=== PATIENT | female | born 1940 | race Asian ===

== ENCOUNTER → 2018-03-13 11:51 | Outpatient (CLI) | payer OTHER, MEDICAID, SELFPAY | PROVIDERS: PCP Family Medicine; Visit Provider Family Medicine | DX: R32 Unspecified urinary incontinence (principal) | CPT/HCPCS: 87086 ==

== ENCOUNTER → 2018-06-21 10:40 | Outpatient (CLI) | payer MEDICARE, MEDICAID, SELFPAY ==
--- NOTE | 2018-06-21 | DI.US.S_ITS ---
PROCEDURE: US THYROID INDICATIONS: LEFT THYROID ENLARGEMENT TECHNIQUE: Real-time scanning was performed of the thyroid gland, with image documentation. COMPARISON: None. FINDINGS: Right: Thyroid lobe measures 4.0 x 1.3 x 1.3 cm, and is homogeneous in echotexture. Left: Thyroid lobe measures 4.3 x 1.5 x 1.6 cm, and is homogenous in echotexture. Isthmus: 2.3 mm thick. Nodule number: 1 Location: Left inferior Size: 1.5 x 1.0 x 1.1 cm. Composition: Solid Echogenicity: Hypoechoic Shape: wider than tall. Margins: Smooth Echogenic foci: None Total points: 4 ACR TI-RADS category: Moderately suspicious Nodule number: 2 Location: Left inferior Size: 0.7 x 0.7 x 0.7 cm. Composition: Solid Echogenicity: Hypoechoic Shape: wider than tall. Margins: Smooth Echogenic foci: None Total points: 4 ACR TI-RADS category: Moderately suspicious Nodule number: 3 Location: Right superior Size: 0.5 x 0.3 x 0.5 cm. Composition: Solid Echogenicity: Hypoechoic Shape: wider than tall. Margins: Smooth Echogenic foci: None Total points: 4 ACR TI-RADS category: Moderately suspicious Nodule number: 4 Location: Right inferior Size: 0.9 x 0.6 x 0.6 cm. Composition: Solid Echogenicity: Hypoechoic Shape: wider than tall. Margins: Smooth Echogenic foci: None Total points: 4 ACR TI-RADS category: Moderately suspicious IMPRESSION: Bilateral thyroid nodules as above. Recommend continued followup as detailed below. ACR TI-RADS definitions and recommendations: TI-RADS 1 (benign): 0 points. FNA not needed. TI-RADS 2 (not suspicious): 2 points. FNA not needed. TI-RADS 3 (mildly suspicious): 3 points. * FNA if 2.5 cm or larger, follow up if 1.5 cm or larger (at 1, 3, and 5 years). TI-RADS 4 (moderately suspicious): 4-6 points. * FNA if 1.5 cm or larger, follow up if 1 cm or larger (at 1, 2, 3, and 5 years). TI-RADS 5 (highly suspicious): 7 points or more. * FNA if 1 cm or larger, follow up if 0.5 cm or larger (every year for 5 years). Dictated by: Cl DUFF Interpreted: Mouna Maldonado MD on 06/21/2018 at 12:29 Approved by: Mouna Maldonado M.D. on 06/21/2018 at 14:29
== END ==
PROVIDERS: PCP Family Medicine; Visit Provider Nurse Practitioner Family
DX: E04.2 Nontoxic multinodular goiter (principal)
CPT/HCPCS: 76536

== ENCOUNTER → 2018-12-18 07:48 | Outpatient (CLI) | payer MEDICARE, MEDICAID, SELFPAY ==
[2018-12-18 09:29] LABS: Hemoglobin A1C% w Est Avg Glu 5.9 % (4.0-6.0)
[2018-12-18 09:52] LABS: Alanine Aminotransferase 27 IU/L (9-52); Albumin 3.9 g/dL (3.5-5.0); Albumin Globulin Ratio 1.3 (1.0-2.8); Alkaline Phosphatase 50 U/L (38-126); Aspartate Aminotransferase 20 IU/L (14-36); Bilirubin Total 0.6 mg/dL (0.2-1.3); Blood Urea Nitrogen 21 mg/dL (7-17); Calcium 9.5 mg/dL (8.4-10.2); Carbon Dioxide 30 mmol/L (22-32); Chloride 101 mmol/L (98-107); Cholesterol 133 mg/dL (140-199); Creatinine Urine Random 83.5 mg/dL; Estimated Glomerular Filt Rate > 60.0 mL/min (>60); Glucose 106 mg/dL (80-110); HDL Cholesterol 43 mg/dL (40-60); HEMOLYSIS < 15 (0-50); LDL Cholesterol Calculated 65 mg/dL (<100); Potassium 3.8 mmol/L (3.4-5.1); Sodium 139 mmol/L (137-145); Total Protein 6.9 g/dL (6.3-8.2); Triglycerides 123 mg/dL (35-150)
[2018-12-18 10:00] LABS: Microalbumi Creatinin Ratio Ur 7.1 ug/mg CR (<30); Microalbumin Urine Random < 0.6 mg/dL (0-1.6)
== END ==
PROVIDERS: PCP Family Medicine; Visit Provider Family Medicine
DX: E11.8 Type 2 diabetes mellitus with unspecified complications (principal); I10 Essential (primary) hypertension
CPT/HCPCS: 36415; 80053; 80061; 82043; 82570; 83036

== ENCOUNTER → 2019-01-03 10:46 | Outpatient (CLI) | payer MEDICARE, MEDICAID, SELFPAY ==
--- NOTE | 2019-01-03 10:48 | DI.RAD.S_ITS ---
PROCEDURE: FL BARIUM SWALLOW INDICATIONS: difficulty swallowing COMPARISON: None. FINDINGS: Function: There is markedly decreased and delayed esophageal peristalsis. No elicited gastroesophageal reflux. Occasional retrograde contrast material transit is noted within the esophagus. Morphology: Air-contrast images demonstrate normal mucosal morphology. Single contrast views show no esophageal strictures, extrinsic mass effects, or diverticula. Limited images of the stomach demonstrate normal appearance. IMPRESSION: Severe esophageal dysmotility. Dictated by: Lj Whitten M.D. on 01/03/2019 at 11:48 Approved by: Lj Whitten M.D. on 01/03/2019 at 11:49
== END ==
PROVIDERS: PCP Family Medicine; Visit Provider Family Medicine
DX: R13.10 Dysphagia, unspecified (principal); K22.4 Dyskinesia of esophagus
CPT/HCPCS: 74220

== ENCOUNTER 2019-01-11 08:53 | Outpatient (RCR) | payer MEDICARE, MEDICAID, SELFPAY ==
--- NOTE | 2019-01-12 15:37 | ST.OPIE ---
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 Roger Reason for Referral Dsyphagi Setting Assessment Location Outpatient Care Visit Type Note Type Initial Evaluation Next Note Type Next Note Type Treatment Note Patient Information Identification Type Name History Ishan complains of difficulty swallowing solid foods. The symptoms began last year during a trip to [facility] when she was eating a hard fruit. Since that time, she has noticed increasing difficulty swallowing foods such as vegetables. She compensates by drinking water which usually alleviates the symptoms. She had a Barium Swallow completed this month which revealed severe esophageal dysmotility. No signs of reflux. Subjective Observations Ishan arrived on time accompanied by her daughter who translated during the evaluation. Ishan speaks Kayla. Evaluation Liquids Trialed Thin Solids Trialed Puree Mechanical Soft Regular Administration Type Self-Feeding Oral Impairment WFL Oral Phase Comments Oral mucosa was moist without excessive saliva or drooling. No sores, lesions or food/ residue observed in the mouth. She wears dentures which are in good condition, but loosely fitting on the bottom. Her daughter reports she is scheduled for a dental appointment for new dentures. No presence of drooling. Labial closure, lingual range of motion and facial symmetry were within functional limits. Patient consumed appropriately sized self- administered bites and sips at a slow rate. Her posture was upright and she demonstrated efficient mastication without residue following trials. No signs of oral dysphagia. Pharyngeal Phase Comments The Renetta Swallow Protocol was administered. The patient passed by drinking 3 ounces of water without stopping and without coughing/choking during or immediately after completion. She had a delayed throat clear following trials. We discussed potential for pharyngeal residue and education was provided to the patient and her daughter regarding general swallowing anatomy and swallowing problems. Handouts were provided which discussed the phases of swallowing and recommendations including small bites/sips, multiple swallows,extra liquids and remaining upright 20 minutes following meals to assist with clearance. Findings Impressions No significant signs of pharyngeal dysphagia however, this cannot be ruled out without instrumental assessment. Recommend patient follow up with [facility] concerning severe esophageal dysmotility which was identified on Barium Swallow this month. If patient's symptoms continue or worsen following recommendations from GI doctor, recommend Modified Barium Swallow Study to assess for pharyngeal impairment which could be contributing to symptoms. Diet Recommendations Liquids Order Thin Diet Order Regular Medication Recommendations As Tolerated Additional Dietary Needs Reminders to Use Strategies Aspiration Precautions Recommended Precautions Upright at 90 Degrees Alternate Liquids/Solids Small Bites/Sips Treatment Plan Placement Recommendations after Home Discharge Appropriate for Therapy Yes Therapy Recommendations Follow-up after patient has seen [facility] regarding esophageal dysmotility. Dysphagia Goals To be determined
--- NOTE | 2019-04-23 16:07 | ST.IPDYTX ---
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 Recommendations were made for a Modified Barium Swallow Study with follow-up after to discuss treatment options/ plans. She has not been seen since the initial evaluation and has not returned calls regarding follow-up/discharge. She is being discharged after having not been seen in over 90 days. Treatment Plan Appropriate for Continued Therapy No Therapy Recommendations Discharge from therapy at this time.
== END 2019-04-24 11:04 | disposition home or self-care (01) ==
LOC: SP 08:53
PROVIDERS: PCP Family Medicine; Visit Provider Family Medicine
DX: R13.10 Dysphagia, unspecified (principal)
CPT/HCPCS: 92610

== ENCOUNTER → 2019-05-21 08:40 | Outpatient (CLI) | payer MEDICARE, MEDICAID, SELFPAY ==
[2019-05-21 10:53] LABS: Add Manual Diff / Slide Review NO; Basophils Absolute Auto 100 /uL (0-100); Basophils Percent Auto 1.5 % (0-2); Eosinophils Absolute Auto 100 /uL (0-450); Eosinophils Percent Auto 3.1 % (2-4); Hematocrit 43.8 % (36-46); Hemoglobin 15.3 g/dL (12.0-16.0); Lymphocytes Absolute Auto 1600 /uL (1100-4500); Lymphocytes Percent Auto 44.4 % (25-40); Mean Corpuscular Hemoglobin 30.3 PG (26-34); Mean Corpuscular Volume 86.6 fL (80-100); Monocytes Absolute Auto 300 /uL (0-900); Neutrophils Absolute Auto 1600 /uL (1500-7000); Platelet Count 161 X10^3/uL (150-400); Red Blood Cell Count 5.06 X10^6/uL (4.0-5.2); White Blood Cell Count 3.7 X10^3/uL (4.5-11.0)
[2019-05-21 10:59] LABS: Hemoglobin A1C% w Est Avg Glu 5.5 % (4.0-6.0)
== END ==
PROVIDERS: Visit Provider Family Medicine
DX: E11.8 Type 2 diabetes mellitus with unspecified complications (principal)
CPT/HCPCS: 36415; 83036; 84443; 85025

== ENCOUNTER → 2019-05-31 13:43 | Outpatient (CLI) | payer MEDICARE, MEDICAID, SELFPAY | PROVIDERS: PCP Family Medicine; Visit Provider Family Medicine | DX: M81.0 Age-related osteoporosis without current pathological fracture (principal); Z78.0 Asymptomatic menopausal state; E11.9 Type 2 diabetes mellitus without complications | CPT/HCPCS: 77080 ==

== ENCOUNTER → 2020-11-29 08:36 | Outpatient (CLI) | payer MEDICARE, MEDICAID, SELFPAY ==
[2020-11-29 09:27] LABS: Add Manual Diff / Slide Review NO; Basophils Absolute Auto 100 /uL (0-100); Basophils Percent Auto 1.3 % (0-2); Eosinophils Absolute Auto 100 /uL (0-450); Hematocrit 43.7 % (36-46); Hemoglobin 14.8 g/dL (12.0-16.0); Lymphocytes Absolute Auto 1700 /uL (1100-4500); Lymphocytes Percent Auto 40.7 % (25-40); Mean Corpuscular HGB Conc 33.9 % (30-36); Mean Corpuscular Hemoglobin 29.5 PG (26-34); Monocytes Absolute Auto 400 /uL (0-900); Monocytes Percent Auto 9.3 % (3-14); Neutrophils Absolute Auto 1900 /uL (1500-7000); Neutrophils Percent Auto 45.7 % (50-75); Platelet Count 139 X10^3/uL (150-400); Red Blood Cell Count 5.03 X10^6/uL (4.0-5.2); Red Cell Distribution Width 13.3 % (11.6-14.8); White Blood Cell Count 4.2 X10^3/uL (4.5-11.0)
[2020-11-29 09:34] LABS: Hemoglobin A1C% w Est Avg Glu 5.9 % (4.0-6.0)
[2020-11-29 09:38] LABS: Alanine Aminotransferase 12 IU/L (<35); Albumin Globulin Ratio 1.4 (1.0-2.8); Alkaline Phosphatase 50 U/L (38-126); Aspartate Aminotransferase 25 IU/L (14-36); Bilirubin Total 0.6 mg/dL (0.2-1.3); Blood Urea Nitrogen 14 mg/dL (7-17); Calcium 9.2 mg/dL (8.4-10.2); Carbon Dioxide 31 mmol/L (22-32); Chloride 104 mmol/L (98-107); Cholesterol 154 mg/dL (140-199); Estimated Glomerular Filt Rate > 60.0 mL/min (>60); Globulin 2.9 g/dL (1.7-4.1); Glucose 101 mg/dL (80-110); HDL Cholesterol 41 mg/dL (40-60); HEMOLYSIS < 15 (0-50); LDL Cholesterol Calculated 84 mg/dL (<100); Sodium 140 mmol/L (137-145); Total Protein 6.9 g/dL (6.3-8.2); Triglycerides 143 mg/dL (35-150)
[2020-11-29 10:10] LABS: Creatinine Urine Random 67.5 mg/dL
[2020-11-29 10:12] LABS: Microalbumin Urine Random < 0.6 mg/dL (0-1.6)
[2020-11-29 10:27] LABS: Vitamin B12 214 pg/mL (239-931)
[2020-11-29 10:39] LABS: TSH w/ Reflex to FT4 1.42 uIU/mL (0.47-4.68)
== END ==
PROVIDERS: PCP Internal Medicine; Referring Provider Internal Medicine; Visit Provider Internal Medicine
DX: I10 Essential (primary) hypertension (principal); E11.21 Type 2 diabetes mellitus with diabetic nephropathy; E78.5 Hyperlipidemia, unspecified; R53.82 Chronic fatigue, unspecified
CPT/HCPCS: 36415; 80053; 80061; 82043; 82570; 82607; 83036; 84443; 85025

== ENCOUNTER → 2021-02-20 14:58 | Outpatient (CLI) | payer MEDICARE, MEDICAID, SELFPAY ==
--- NOTE | 2021-02-20 | DI.RAD.S_ITS ---
PROCEDURE: XR HIP W PEL IF DONE RT 2V INDICATIONS: Right Hip Pain TECHNIQUE: AP pelvis with lateral view(s) of the right hip(s). COMPARISON: None. FINDINGS: Bones: No fractures or dislocations. Pelvic ring appears intact. No suspicious bony lesions. Moderate narrowing of the axial portion of the hip joints bilaterally with periarticular osteophyte formation. Mid lumbar spine fixation hardware incompletely visualized. Soft tissues: The visualized bowel gas pattern is normal. No suspicious soft tissue calcifications. IMPRESSION: Moderate symmetric hip joint degeneration. Dictated by: Cl Gaona RRA Interpreted: Ravin Leung MD on 02/20/2021 at 15:14 Transcribed by: CHUN on 02/20/2021 at 15:15 Approved by: Ravin Leung M.D. on 02/20/2021 at 15:31
== END ==
PROVIDERS: PCP Internal Medicine; Referring Provider Internal Medicine; Visit Provider Internal Medicine
DX: M25.551 Pain in right hip (principal); M16.0 Bilateral primary osteoarthritis of hip
CPT/HCPCS: 73502

== ENCOUNTER 2021-05-07 19:10 | Emergency (ER) | payer MEDICARE, MEDICAID, SELFPAY ==
[2021-05-07 19:22] VITALS: BP 187/84; PULSE 87; RESP 15; TEMP 36.7; O2SAT 96; BMI 23.9
[2021-05-07 20:31] LABS: Bacteria Urine Few (2-10); Calcium Oxalate Crystals Urine Few; Culture Indicated Urine Specimen Cultured; RBC Urine >100/HPF (0-5/HPF); Squamous Epithelial Cell Urine 0-1 /HPF (0-5/HPF); WBC Urine 30-100/HPF (0-5/HPF)
--- NOTE | 2021-05-07 22:05 | ED.FEMALEGU ---
HPI - Female Genitourinary General Chief complaint: Urogenital-Female Stated complaint: Burning and Bleeding, Frequent Urination Time Seen by Provider: 05/07/21 21:42 Source: patient Mode of arrival: Ambulatory Limitations: no limitations History of Present Illness HPI Narrative: 80-year-old female nonsmoker with history of hypertension and diabetes presents with her daughter and a chief complaint of a day or 2 of urinary frequency, urgency and mild hematuria. She denies any systemic findings such as fever, chills nor nausea or vomiting. She does have some right-sided back pain but feels like this is most consistent with her ongoing chronic lumbar pain with occasional radicular symptoms. She denies any lower extremity numbness, tingling or weakness. She denies any loss of control of bowel or bladder. Related Data Previous Rx's Medication Instructions Recorded blood sugar diagnostic (Blood #100 each 03/15/19 Glucose Test) blood-glucose meter (Blood Glucose #1 each 03/15/19 Monitoring) diclofenac sodium 1 % topical gel 2 gram TOP QID #100 gram 05/25/19 hydrochlorothiazide 12.5 mg capsule 12.5 mg PO QDAY #90 cap 05/25/19 metformin 500 mg tablet,extended 500 mg PO QDAY #180 tab 05/25/19 release 24 hr (Glucophage XR) mometasone 0.1 % topical solution 1 applictn TOP DAILY PRN #60 ml 05/25/19 simvastatin 10 mg tablet 10 mg PO HS #90 tab 05/25/19 solifenacin 5 mg tablet (Vesicare) 5 mg PO QDAY #90 tab 05/25/19 aspirin 81 mg tablet,delayed 81 mg PO QDAY #90 tab 06/22/19 release lisinopril 20 mg tablet See Rx Instructions .ROUTE 06/26/20 .COMPLEX #30 tab alendronate 70 mg tablet See Rx Instructions .ROUTE 09/11/20 .COMPLEX #12 tab metoprolol succinate 50 mg 50 mg PO DAILY #30 tab 10/01/20 tablet,extended release 24 hr cefuroxime axetil 500 mg tablet 500 mg PO BID #14 tab 05/07/21 Allergies Allergy/AdvReac Type Severity Reaction Status Date / Time No Known Drug Allergies Allergy Unverified 05/25/19 14:48 Review of Systems Review of Systems Narrative: GENERAL: Denies chills, fatigue, malaise, fever, sweats. HEENT: Denies sinus pain, ear pain, sore throat, difficulty swallowing, dizziness. RESPIRATORY: Denies dyspnea, cough, wheezing, hemoptysis, sputum. CARDIOVASCULAR: Denies chest pain, palpitations, orthopnea, edema, GASTROINTESTINAL: Denies nausea, vomiting, abdominal pain, diarrhea, constipation, melena. : See HPI MUSCULOSKELETAL: denies weakness, joint pain, or bony pain SKIN: Denies rash, skin lesions, or other NEUROLOGIC: Denies weakness, headache, numbness, change in speech, confusion, seizures, incoordination. PSYCHIATRIC: No concerning psychosocial issues. 12 point review of systems is negative except for those stated above Patient History Medical History Ankle pain Diabetes insipidus Foot pain Hypertension Surgical History No history of previous surgery (06/27/17) alcohol intake frequency: holidays/special occasions only Substance Use Type: does not use Exam Narrative Exam Narrative: GEN: AOx3 and in mild distress EYES: Pupils are equal, round, and reactive to light and accommodation. Extraoccular muscles are intact bilaterally. There is no subconjunctival hemorrhage or exudate. CHEST: Lungs are clear to auscultation bilaterally and free of wheezes, rales, or rhonchi. Heart rate is regular rhythm, there are no murmurs, clicks, rubs, or gallops. There is no chest wall tenderness. ABD: Abdomen is soft and nontender. There is no guarding or rebound. Bowel sounds are normal in all 4 quadrants. There is no mass or organomegaly. EXT: Full painless ROM of all extremities with no loss of sensation or strength. BACK: no CVA tenderness SKIN: Warm, pink, and dry. No erythema or rash Initial Vital Signs Initial Vital Signs: Vital Signs Temperature 98.1 F 05/07/21 19: Pulse Rate 87 05/07/21 19:22 Respiratory Rate 15 05/07/21 19:22 Blood Pressure 187/84 H 05/07/21 19:22 Pulse Oximetry 96 05/07/21 19:22 Course Orders Ordered: Discontinued Medications Cefuroxime Axetil (Cefuroxime 250 Mg Tablet) 500 mg PO NOW ONE Stop: 05/07/21 22:11 Last Admin: 05/07/21 22:16 Dose: 500 mg Documented by: MAL Vital Signs Vital signs: Vital Signs - 8 hr 05/07/21 19:22 Temperature 98.1 F Pulse Rate 87 Respiratory Rate 15 Blood Pressure 187/84 H Pulse Oximetry 96 MDM - Female Genitourinary Lab Data Labs: Lab Results 05/07/21 Range/Units 20:00 Urine RBC >100/hpf H (0-5/HPF) Urine WBC 30-100/hpf H (0-5/HPF) Ur Squamous Epith Cells 0-1 /hpf (0-5/HPF) Calcium Oxalate Crystal Few H Urine Bacteria Few (2-10) H (None) Ur Culture Indicated? Specimen cultured Urine Dip Bedside Urine Glucose Negative Bedside Urine Bilirubin - Negative Bedside Urine Ketone - Negative Urine Specific Cypress 1.030 Bedside Urine Occult Blood +++ Bedside Urine pH 6.0 Bedside Urine Protein +++ 300 Bedside Urine Urobilinogen - Negative Bedside Urine Nitrite - Negative Bedside Urine Leukocytes +/- 15 Esterase Discharge Plan Departure Patient Disposition: Home Clinical Impression: Acute UTI Instructions: DI for Urinary Tract Infection (UTI) Activity Restrictions/Additional Instructions: *You have been diagnosed with [urinary tract infection with hematuria, no evidence of sepsis or pyelonephritis *What to do: *Please continue to take your regular medications as directed. [ x] New medication prescriptions sent to your pharmacy: [[facility]] [ ] New medication written as a paper prescription [ ] No new medications given *Please follow up with your primary care provider in 2-3 days, call for an appointment. Let them know you were seen in the Emergency Department and that we ask that you be seen in follow up. We will electronically transmit a record of today's note if your PCP is in our system *If you do not have a primary care provider please contact the [facility] Resource line at [phone]. They will ask some questions about your medical history and help get you set up with a doctor in the community. *Return to Emergency Department if you should have any new, worsening or concerning symptoms, such as [fever greater than 101 F, shaking chills, worsening pain, persistent vomiting or other bothersome symptoms] Prescriptions: New cefuroxime axetil 500 mg tablet 500 mg PO BID Qty: 14 RF: 0 No Action hydrochlorothiazide 12.5 mg capsule 12.5 mg PO QDAY Qty: 90 RF: 3 metformin [Glucophage XR] 500 mg tablet extended release 24 hr 500 mg PO QDAY Qty: 180 RF: 1 simvastatin 10 mg tablet 10 mg PO HS Qty: 90 RF: 3 solifenacin [Vesicare] 5 mg tablet 5 mg PO QDAY Qty: 90 RF: 3 mometasone 0.1 % solution 1 applictn TOP DAILY PRN (Reason: itching) Qty: 60 RF: 0 diclofenac sodium 1 % gel 2 gram TOP QID Qty: 100 RF: 3 (DME) blood-glucose meter [Blood Glucose Monitoring] kit See Dose Instructions .ROUTE .MEDSUPPLY Qty: 1 RF: 0 (DME) Blood Glucose Test strip See Dose Instructions .ROUTE .MEDSUPPLY Qty: 100 RF: 3 aspirin 81 mg tablet,delayed release (DR/EC) 81 mg PO QDAY Qty: 90 RF: 3 lisinopril 20 mg tablet See Rx Instructions .ROUTE .COMPLEX Qty: 30 RF: 0 alendronate 70 mg tablet See Rx Instructions .ROUTE .COMPLEX Qty: 12 RF: 0 metoprolol succinate 50 mg tablet extended release 24 hr 50 mg PO DAILY Qty: 30 RF: 0 Referrals: Alicia Dangelo MD [Primary Care Provider] -
[2021-05-07] MEDS: cefUROXime 250 MG TABLET 500 MG PO (22:16)
[2021-05-07 22:31] VITALS: BP 176/84; PULSE 86; RESP 16; O2SAT 99
== END 2021-05-07 22:34 | disposition home or self-care (01) ==
PROVIDERS: Emergency Provider Emergency Medicine; PCP Internal Medicine
DX: N39.0 Urinary tract infection, site not specified (principal)
CPT/HCPCS: 81003; 81015; 87077; 87086; 87186; 99283

== ENCOUNTER → 2021-05-25 08:45 | Outpatient (CLI) | payer MEDICARE, MEDICAID, SELFPAY ==
--- NOTE | 2021-05-25 | DI.ECHO.S_ITS ---
[place]---------+ [facility] +---------+ : : [address] : : : : [id number] : : : : Phone: [phone]+ Echocardiogram Report + + :Name: SAMI OSBORNE Study Date: 05/25/2021 Height: 62 in : :[facility] ReadingLocation: Weight: 136 lb : : Gender: Female BSA: 1.6 m2 : :: 1940 Age: 81 yrs BP: 156/94 mmHg: :Reason For Study: LOCALIZED EDEMA, HYPERTENSION : :Ordering Physician: WILFRID, : :ABBIE Mack Performed By: Shira Rankin : :Referring: ABBIE YUEN : + + Interpretation Summary Borderline concentric left ventricular hypertrophy with ejection fraction 60- 65%. Normal right ventricle and both atria. No significant valvular abnormality. Procedure: A two-dimensional transthoracic echocardiogram with color flow and Doppler was performed. The study quality was technically adequate. Comparison is made with the echocardiogram of 01/08/2015. The patient was in sinus rhythm with heart rates between 70-80 bpm during the exam. Left Ventricle: There is borderline concentric left ventricular hypertrophy. The ejection fraction is estimated to be 60-65%. There are no focal wall motion abnormalities. Right Ventricle: The right ventricle is normal in size and function. Atria: Both atria are normal in size. There is no Doppler evidence for an interatrial shunt. Mitral Valve: The mitral valve is normal in structure and function. There is mild mitral annular calcification. There is trace mitral regurgitation. Aortic Valve: The aortic valve is trileaflet. The aortic valve opens well. There is mild aortic valve sclerosis. There is no aortic valve stenosis. No aortic regurgitation is present. Tricuspid Valve: The tricuspid valve is normal in structure and function. There is mild tricuspid regurgitation. The right ventricular systolic pressure is estimated to be at least 21 mmHg based on an estimated right atrial pressure of 3 mm Hg. Pulmonic Valve: The pulmonic valve leaflets are thin and pliable; valve motion is normal. There is mild pulmonic regurgitation. Great Vessels: The aortic root is normal size. The dimensions of the ascending aorta are normal. The IVC is of normal diameter and collapses greater than 50% with a sniff. This suggests a low right atrial pressure of 3 mm Hg. Pericardium/ Pleura There is no pericardial effusion. There is no pleural effusion. MMode/2D Measurements & Calculations LVIDd: 4.0 cm LVOT diam: 2.0 cm LVIDs: 2.3 cm Ao root diam: 2.9 cm FS: 43.3 % asc Aorta Diam: 3.1 cm IVSd: 1.1 cm Ao Arch Diam (Prox Trans): 2.3 cm LVPWd: 0.79 cm LV beckwith. diameter/BSA (cm/m^2): 2.5 LV sys. diameter/BSA (cm/m^2): 1.4 LA A2 area: 15.6 cm2 RA long axis: 5.1 cm LA A4 area: 15.2 cm2 RA area: 15.1 cm2 LA length (vol): 5.5 cm RA vol: 37.9 ml LA vol: 36.6 ml RA : 23.3 ml/m2 LA vol index: 22.6 ml/m2 IVC diam: 1.1 cm RVD1 (basal): 3.8 cm TAPSE: 1.8 cm Doppler Measurements & Calculations Ao V2 max: 136.1 cm/sec LVOT Max Dominic: 83.6 cm/sec Ao V2 mean: 96.4 cm/sec LV V1 max P.8 mmHg Ao max P.4 mmHg LV V1 VTI: 19.7 cm Ao mean P.1 mmHg MARQUISE(I,D): 2.2 cm2 Ao V2 VTI: 26.8 cm MARQUISE(V,D): 1.9 cm2 sev ratio: 0.74 MARQUISE indexed to BSA (cm^2/m^2): 1.4 MV E max dominic: 79.1 cm/sec TR max dominic: 211.0 cm/sec MV A max dominic: 104.2 cm/sec TR max P.8 mmHg MV E/A: 0.76 PA V2 max: 89.0 cm/sec Med Peak E' Dominic: 5.7 cm/sec PA V2 mean: 63.5 cm/sec E/E' med: 13.9 PA mean P.8 mmHg Lat Peak E' Dominic: 6.2 cm/sec PA pr(Accel): 44.7 mmHg E/E' lat: 12.7 E/e' average: 13.3 MV dec time: 0.22 sec SV(LVOT): 60.1 ml Electronically signed by: Dulce Parks on Reading Physician:05/25/2021 11:53 AM
[2021-05-25 09:23] LABS: Add Manual Diff / Slide Review NO; Basophils Absolute Auto 100 /uL (0-100); Basophils Percent Auto 1.1 % (0-2); Eosinophils Absolute Auto 100 /uL (0-450); Eosinophils Percent Auto 1.4 % (2-4); Hematocrit 41.9 % (36-46); Hemoglobin 14.1 g/dL (12.0-16.0); Lymphocytes Absolute Auto 1400 /uL (1100-4500); Lymphocytes Percent Auto 25.8 % (25-40); Mean Corpuscular HGB Conc 33.8 % (30-36); Mean Corpuscular Volume 88.7 fL (80-100); Monocytes Absolute Auto 500 /uL (0-900); Neutrophils Absolute Auto 3500 /uL (1500-7000); Neutrophils Percent Auto 62.7 % (50-75); Platelet Count 162 X10^3/uL (150-400); Red Blood Cell Count 4.72 X10^6/uL (4.0-5.2); Red Cell Distribution Width 13.4 % (11.6-14.8); White Blood Cell Count 5.6 X10^3/uL (4.5-11.0)
[2021-05-25 09:32] LABS: Hemoglobin A1C% w Est Avg Glu 5.7 % (4.0-6.0)
[2021-05-25 09:51] LABS: Alanine Aminotransferase 12 IU/L (<35); Albumin Globulin Ratio 1.2 (1.0-2.8); Alkaline Phosphatase 49 U/L (38-126); Aspartate Aminotransferase 23 IU/L (14-36); BUN Creatinine Ratio 31.3 (6-22); Bilirubin Total 0.9 mg/dL (0.2-1.3); Blood Urea Nitrogen 15 mg/dL (7-17); Carbon Dioxide 29 mmol/L (22-32); Chloride 105 mmol/L (98-107); Estimated Glomerular Filt Rate > 60.0 mL/min (>60); Globulin 3.4 g/dL (1.7-4.1); Glucose 119 mg/dL (80-110); HEMOLYSIS < 15 (0-50); Sodium 139 mmol/L (137-145); Total Protein 7.4 g/dL (6.3-8.2)
[2021-05-25 10:02] LABS: Vitamin D 25 Hydroxy (D3) 37.6 ng/mL (30.0-100.0)
[2021-05-25 10:17] LABS: TSH w/ Reflex to FT4 0.74 uIU/mL (0.47-4.68)
[2021-05-27 07:38] LABS: Cholesterol, Total 166 mg/dL (100-199); HDL-Cholesterol 56 mg/dL (>39); HDL-Particle (Total) 31.2 umol/L (>=30.5); LDL Particle 1309 nmol/L (<1000); LDL Size 20.2 nm (>20.5); LDL-Cholsterol 94 mg/dL (0-99); LP-IR Score <25 (<=45); Small LDL- Particle 801 nmol/L (<=527); Triglycerides 89 mg/dL (0-149)
== END ==
PROVIDERS: PCP Internal Medicine; Referring Provider Internal Medicine; Visit Provider Internal Medicine
DX: R60.0 Localized edema (principal); M81.0 Age-related osteoporosis without current pathological fracture; E78.5 Hyperlipidemia, unspecified; E11.21 Type 2 diabetes mellitus with diabetic nephropathy; I10 Essential (primary) hypertension; I51.7 Cardiomegaly; M85.852 Other specified disorders of bone density and structure, left thigh
CPT/HCPCS: 36415; 77080; 80053; 80061; 82306; 83036; 83704; 84443; 85025; 93306

== ENCOUNTER → 2021-05-28 11:11 | Outpatient (CLI) | payer MEDICARE, MEDICAID, SELFPAY ==
--- NOTE | 2021-05-28 11:13 | DI.US.S_ITS ---
PROCEDURE: US PELVIC COMPLETE INDICATIONS: PMB TECHNIQUE: Real-time scanning was performed of the pelvic organs, with image documentation. Additional endovaginal scanning was necessary due to incomplete visualization of the adnexal and endometrial structures by transabdominal scanning. COMPARISON: None. FINDINGS: Uterus: Uterus is normal in size at 4.8 x 2.7 x 4.7 cm. The endometrium measures 13 mm in combined thickness with small cystic spaces. Intramural fibroid is seen measuring 1.1 x 1.2 x 1.3 cm. Ovaries: The ovaries are not visualized. Other: No pathologic free abdominal or pelvic fluid. IMPRESSION: 1. Heterogeneous endometrial thickening to 13 mm. Recommend OBGYN consultation and possible endometrial biopsy to exclude the possibility of endometrial carcinoma. 2. The ovaries are not visualized. Dictated by: Partha Mccabe M.D. on 05/28/2021 at 12:46 Approved by: Partha Mccabe M.D. on 05/28/2021 at 12:50
== END ==
PROVIDERS: PCP Internal Medicine; Referring Provider Obstetrics & Gynecology; Visit Provider Obstetrics & Gynecology
DX: N95.0 Postmenopausal bleeding (principal); N39.0 Urinary tract infection, site not specified
CPT/HCPCS: 76830; 76856

== ENCOUNTER 2021-05-30 16:05 | Emergency (ER) | payer MEDICARE, MEDICAID, SELFPAY ==
[2021-05-30 16:21] VITALS: BP 177/87; PULSE 82; O2SAT 97
[2021-05-30 16:30] VITALS: BP 177/87; PULSE 79; RESP 20; TEMP 37.1; O2SAT 94; O2SAT 97; BMI 25.0
--- NOTE | 2021-05-30 17:12 | PC.NURSE ---
Reviewed medication list for previous antibiotics. Of note, I saw that [facility] was filling a prescription for cefuroxime from Angelito Ashraf's previous visit. Pt's daughter (Musa Parsons) had called ED earlier in the day (@1300) requesting a refill and I informed her that if her mother was having continued symptoms she should be re-seen by a provider and that the ED does not refill any medications. Also noted that the C&S of the urine was resistant to cefuroxime. Daughter (Eliud Blandon) brought mother to hospital for currant visit. I called [facility] to inquire about prescription. They told me that daughter had brought in paper script. @ 1400 today. I informed them that the script was not valid and had already been filled at [facility] on 05/08/21. I called Ms. Parsons to discuss. She stated that she was unaware of how script was being filled at [facility]. Education regarding multiple antibiotics / reusing prescriptions that had already been filled/ proper use of antibiotics/ open communication between parties completed with verbalized understanding.
--- NOTE | 2021-05-30 17:25 | ED.FEMALEGU ---
HPI - Female Genitourinary <Eve Dela Cruz [facility] - Last Filed: 05/30/21 20:27> General Chief complaint: Urogenital-Female Stated complaint: BLOOD IN URINE Time Seen by Provider: 05/30/21 16:36 Source: patient and family Mode of arrival: Ambulatory Limitations: other History of Present Illness HPI Narrative: 81-year-old female brought in by one of her daughters today for new onset blood in urine. Patient has had this multiple times in the past, most recently on 05/07/21 seen here in the emergency department. She was prescribed cefuroxime and was later seen by her PCP who ordered a pelvic ultrasound. Patient's daughter reports that this is ?always how her previous UTIs have presented, with blood in her urine. Patient denies any fever, dysuria, abdominal pain, back pain, frequency, or urgency. Patient's ultrasound shows endometrial thickening of to 13 mm and recommends referral to OBGYN with biopsy. On patient's micro from her UTI in 05/07/2021 showing E.coli, she has ESBL with resistance to cefazolin, cefepime, and ceftriaxone, including cefuroxime. She is however susceptible to nitrofurantoin. Related Data Previous Rx's Medication Instructions Recorded blood sugar diagnostic (Blood #100 each 03/15/19 Glucose Test) blood-glucose meter (Blood Glucose #1 each 03/15/19 Monitoring) diclofenac sodium 1 % topical gel 2 gram TOP QID #100 gram 05/25/19 hydrochlorothiazide 12.5 mg capsule 12.5 mg PO QDAY #90 cap 05/25/19 metformin 500 mg tablet,extended 500 mg PO QDAY #180 tab 05/25/19 release 24 hr (Glucophage XR) mometasone 0.1 % topical solution 1 applictn TOP DAILY PRN #60 ml 05/25/19 simvastatin 10 mg tablet 10 mg PO HS #90 tab 05/25/19 solifenacin 5 mg tablet (Vesicare) 5 mg PO QDAY #90 tab 05/25/19 aspirin 81 mg tablet,delayed 81 mg PO QDAY #90 tab 06/22/19 release lisinopril 20 mg tablet See Rx Instructions .ROUTE 06/26/20 .COMPLEX #30 tab alendronate 70 mg tablet See Rx Instructions .ROUTE 09/11/20 .COMPLEX #12 tab metoprolol succinate 50 mg 50 mg PO DAILY #30 tab 10/01/20 tablet,extended release 24 hr cefuroxime axetil 500 mg tablet 500 mg PO BID #14 tab 05/07/21 amoxicillin 875 mg-potassium 1 tab PO BID #20 tab 05/10/21 clavulanate 125 mg tablet (Augmentin) nitrofurantoin 100 mg PO BID 5 Days #10 cap 05/30/21 monohydrate/macrocrystals 100 mg capsule (Macrobid) Allergies Allergy/AdvReac Type Severity Reaction Status Date / Time No Known Drug Allergies Allergy Verified 05/30/21 16:28 Review of Systems <BLANCA Bender - Last Filed: 05/30/21 20:27> Review of Systems Narrative: General: denies fever, chills Head/Neck: denies headache, neck pain Eyes: denies visual changes, eye pain Cardio: denies chest pain, palpitations Respiratory: denies shortness of breath, cough GI: denies abdominal pain, nausea, vomiting, or diarrhea : denies dysuria, + hematuria, denies frequency, urgency, or bleeding from vagina MSK: denies joint pain, muscle weakness Skin: denies rash, itching Neuro: denies numbness, tingling Patient History <BLANCA Bender - Last Filed: 05/30/21 20:27> Medical History (Updated 05/30/21 @ 18:40 by BLANCA Bender) Ankle pain Diabetes insipidus Foot pain Hypertension Surgical History No history of previous surgery (06/27/17) alcohol intake frequency: holidays/special occasions only Substance Use Type: does not use Exam <BLANCA Bender - Last Filed: 05/30/21 20:27> Narrative Exam Narrative: Independently reviewed vitals signs and nursing notes. General: Awake, alert, nontoxic, no cardiorespiratory distress Head/Neck: Atraumatic, neck full range of motion Eyes: EOMI, conjunctiva normal Nose: nares patent, no rhinorrhea Mouth/Throat: moist mucus membranes, posterior pharynx normal, no oral lesions Cardio: Regular rate and rhythm, no peripheral edema Respiratory: respirations unlabored without wheezing, stridor, or rales. No retractions. GI: Abdomen soft, no masses to palpation, nontender to palpation, no pain to the suprapubic area with palpation. No CTA tenderness : Urine with gross hematuria, straight cath showing gross hematuria as well. PIER HAND: Pelvic exam showed very mild amount of vaginal bleeding when speculum came into contact with tissue. No bleeding from cervical os was observed. Very small amount of brown blood was present in the vaginal canal, unknown of its origin if not from cervix. MSK: Moves all extremities, neurovascularly intact Skin: Normal capillary refill, no rash Neuro: Normal speech and cognition, normal gait Initial Vital Signs Initial Vital Signs: Vital Signs Pulse Rate 82 05/30/21 16:21 Blood Pressure 177/87 H 05/30/21 16:21 Pulse Oximetry 97 05/30/21 16:21 <Abbey Morel DO - Last Filed: 05/31/21 08:23> Initial Vital Signs Initial Vital Signs: Vital Signs Pulse Rate 82 05/30/21 16:21 Blood Pressure 177/87 H 05/30/21 16:21 Pulse Oximetry 97 05/30/21 16:21 Course <BLANCA Bender - Last Filed: 05/30/21 20:27> Orders Ordered: ED Orders 05/30/21 17:20 Urinalysis and Microscopic Stat Urine Culture Stat Vital Signs Vital signs: Vital Signs - 8 hr 05/30/21 16:21 05/30/21 16:30 05/30/21 18:54 Temperature 98.8 F 98 F Pulse Rate 82 79 64 Respiratory Rate 20 20 Blood Pressure 177/87 H 177/87 H 157/77 H Pulse Oximetry 97 94 97 <Abbey Morel DO - Last Filed: 05/31/21 08:23> Orders Ordered: ED Orders 05/30/21 17:20 Urinalysis and Microscopic Stat Urine Culture Stat Vital Signs Vital signs: Vital Signs - 8 hr 05/30/21 16:21 05/30/21 16:30 05/30/21 18:54 Temperature 98.8 F 98 F Pulse Rate 82 79 64 Respiratory Rate 20 20 Blood Pressure 177/87 H 177/87 H 157/77 H Pulse Oximetry 97 94 97 MDM - Female Genitourinary <BLANCA Bender - Last Filed: 05/30/21 20:27> Lab Data Labs: Lab Results 05/30/21 Range/Units 17:20 Urine Color Red Urine Appearance Sl cloudy Urine pH 5.0 (4.5-8.0) Ur Specific [place] 1.025 (1.000-1.035) Urine Protein 3+ H (Negative) Urine Glucose (UA) Negative (Negative) g/dL Urine Ketones Trace H (NEGATIVE) Urine Occult Blood 3+ H (Negative) Urine Nitrate Negative (Negative) Urine Bilirubin Negative (NEGATIVE) Urine Urobilinogen 0.2 (0.2) E.U./dL Ur Leukocyte Esterase Trace H (NEGATIVE) Urine RBC >100/hpf H (0-5/HPF) Urine WBC 10-30/hpf H (0-5/HPF) Ur Squamous Epith Cells 1-5 /hpf (0-5/HPF) Ur Transition Epith Cell 1-5/hpf (0-5/HPF) Urine Bacteria Few (2-10) H (None) Ur Culture Indicated? Specimen cultured MDM Narrative Medical decision making narrative: 81-year-old female presents to the emergency department with her daughter for gross hematuria and concern for UTI. Patient was recently treated for a UTI on May 07, 2021 with cefuroxime and micro resulted showing that she is resistant to that. She reports that she saw her primary care physician who ordered a pelvic ultrasound which was completed 2 days ago. The results from that show moderate endometrial thickening up to 13 mm with recommendation for biopsy. Consultation to OBGYN was unsuccessful after multiple calls so a message was left today. She is referred to her PCP as well as Dr. Morton with [facility] for follow-up and further testing including biopsy. Her urine today showed bacteria in her urine and RBCs. It was sent for culture. She was prescribed nitrofurantoin and instructed to call her PCP Tuesday morning to arrange for follow-up. This is most likely a recurrence of her UTI however this is also concerning for malignancy as this has been a repeat occurrence and she does have an abnormal thickness endometrium for her age. Patient is appropriate and amenable to discharge home. Vital signs are stable on repeat examination is unremarkable. Patient has been informed of results. Patient has been given strict return to ER precautions for any new or worsening symptoms. Patient understands to follow up closely with outpatient providers as instructed. Patient understands plan and agrees to discharge home. All questions and concerns answered at this time. <Abbey Maria Teresa, DO - Last Filed: 05/31/21 08:23> Lab Data Labs: Lab Results 05/30/21 Range/Units 17:20 Urine Color Red Urine Appearance Sl cloudy Urine pH 5.0 (4.5-8.0) Ur Specific [place] 1.025 (1.000-1.035) Urine Protein 3+ H (Negative) Urine Glucose (UA) Negative (Negative) g/dL Urine Ketones Trace H (NEGATIVE) Urine Occult Blood 3+ H (Negative) Urine Nitrate Negative (Negative) Urine Bilirubin Negative (NEGATIVE) Urine Urobilinogen 0.2 (0.2) E.U./dL Ur Leukocyte Esterase Trace H (NEGATIVE) Urine RBC >100/hpf H (0-5/HPF) Urine WBC 10-30/hpf H (0-5/HPF) Ur Squamous Epith Cells 1-5 /hpf (0-5/HPF) Ur Transition Epith Cell 1-5/hpf (0-5/HPF) Urine Bacteria Few (2-10) H (None) Ur Culture Indicated? Specimen cultured Discharge Plan Departure Patient Disposition: Home Clinical Impression: Urinary tract infection Qualifiers: Urinary tract infection type: acute cystitis Hematuria presence: with hematuria Qualified Code(s): N30.01 - Acute cystitis with hematuria Instructions: DI for Urinary Tract Infection (UTI) Activity Restrictions/Additional Instructions: *You have been diagnosed with a UTI, and based on your recent pelvic ultrasound, there is endometrial thickening which I would like you to follow-up with your PCP for referral for biopsy or I have attached the referral below. I tried to consult them today and they were unavailable. I did not see any kim bleeding from your vagina today however there was a small amount of blood in your vagina the I did not see it coming from your cervix. *What to do: *Please continue to take your regular medications as directed. [x ] New medication prescriptions sent to your pharmacy: [ [facility]] [ ] New medication written as a paper prescription [ ] No new medications given *Please follow up with your primary care provider in 2-3 days, call for an appointment. Let them know you were seen in the Emergency Department and that we ask that you be seen in follow up. We will electronically transmit a record of today's note if your PCP is in our system *If you do not have a primary care provider please contact the [facility] Resource line at [phone]. They will ask some questions about your medical history and help get you set up with a doctor in the community. *Return to Emergency Department if you should have any new, worsening or concerning symptoms, such as [fever greater than 101F, chills, worsening pain, persistent vomiting or other bothersome symptoms] Prescriptions: New nitrofurantoin monohyd/m-cryst [Macrobid] 100 mg capsule 100 mg PO BID 5 Days Qty: 10 RF: 0 No Action hydrochlorothiazide 12.5 mg capsule 12.5 mg PO QDAY Qty: 90 RF: 3 metformin [Glucophage XR] 500 mg tablet extended release 24 hr 500 mg PO QDAY Qty: 180 RF: 1 simvastatin 10 mg tablet 10 mg PO HS Qty: 90 RF: 3 solifenacin [Vesicare] 5 mg tablet 5 mg PO QDAY Qty: 90 RF: 3 mometasone 0.1 % solution 1 applictn TOP DAILY PRN (Reason: itching) Qty: 60 RF: 0 diclofenac sodium 1 % gel 2 gram TOP QID Qty: 100 RF: 3 (DME) blood-glucose meter [Blood Glucose Monitoring] kit See Dose Instructions .ROUTE .MEDSUPPLY Qty: 1 RF: 0 (DME) Blood Glucose Test strip See Dose Instructions .ROUTE .MEDSUPPLY Qty: 100 RF: 3 aspirin 81 mg tablet,delayed release (DR/EC) 81 mg PO QDAY Qty: 90 RF: 3 lisinopril 20 mg tablet See Rx Instructions .ROUTE .COMPLEX Qty: 30 RF: 0 alendronate 70 mg tablet See Rx Instructions .ROUTE .COMPLEX Qty: 12 RF: 0 metoprolol succinate 50 mg tablet extended release 24 hr 50 mg PO DAILY Qty: 30 RF: 0 cefuroxime axetil 500 mg tablet 500 mg PO BID Qty: 14 RF: 0 amoxicillin-pot clavulanate [Augmentin] 875-125 mg tablet 1 tab PO BID Qty: 20 RF: 0 Referrals: Danny Baker MD [Primary Care Provider] - Gely Morton MD [Physician] - (Pt has endometrial thickening (13mm) visible on pelvic ultrasound, with possible vaginal bleeding. Please refer for biopsy.)
[2021-05-30 17:39] LABS: Appearance Urine UA SL CLOUDY; Bilirubin Urine UA NEGATIVE (NEGATIVE); Color Urine UA RED; Glucose Urine UA NEGATIVE (Negative); Ketones Urine UA TRACE (NEGATIVE); Leukocyte Esterase Urine UA TRACE (NEGATIVE); Nitrite Urine UA NEGATIVE (Negative); Occult Blood Urine UA 3+ (Negative); Protein Urine UA 3+ (Negative); Specific Gravity Urine UA 1.025 (1.000-1.035); Urobilinogen Urine UA 0.2 E.U./dL (0.2)
[2021-05-30 17:57] LABS: Bacteria Urine Few (2-10); Culture Indicated Urine Specimen Cultured; RBC Urine >100/HPF (0-5/HPF); Squamous Epithelial Cell Urine 1-5 /HPF (0-5/HPF); Transitional Epi Cells Urine 1-5/HPF (0-5/HPF); WBC Urine 10-30/HPF (0-5/HPF)
--- NOTE | 2021-05-30 18:08 | PC.NURSE ---
Assisted provider with a pelvic exam on patient. She used a speculum to examine patient with proper PPE. Provider explained what she was doing and what she was about to do clearly. After the examination, provider exited room.
[2021-05-30 18:54] VITALS: BP 157/77; PULSE 64; RESP 20; TEMP 36.6; O2SAT 97
== END 2021-05-30 18:57 | disposition home or self-care (01) ==
PROVIDERS: Emergency Medicine; Emergency Provider Nurse Practitioner Critical Care Medicine; PCP Internal Medicine
DX: N30.01 Acute cystitis with hematuria (principal)
CPT/HCPCS: 51701; 81001; 87086; 99282; 99283

== ENCOUNTER → 2021-06-18 16:43 | Outpatient (CLI) | payer MEDICARE, MEDICAID, SELFPAY ==
--- NOTE | 2021-06-18 | DI.MRI.S_ITS ---
PROCEDURE: MR LUMBAR SPINE WO/W CON INDICATIONS: Dorsalgia, unspecified TECHNIQUE: Noncontrast sagittal T1 spin echo and T2 fast spin echo, coronal T2, sagittal STIR, axial T1 and T2 fast spin echo through the lumbar spine. After the administration of contrast, sagittal and axial T1 spin echo with fat saturation through the lumbar spine. COMPARISON: [facility] [place], CR, XR LUMBAR SPINE 2 OR 3 VIEWS, 06/10/2021, 15:37. FINDINGS: Image quality: Partially degraded by metallic artifact. Alignment and curvature: 5 lumbar type vertebral bodies are present by plain film. There is mild rightward curvature of the upper lumbar spine. Loss of normal lumbar lordosis is present. Mild kyphosis at L1. Mild grade 1 retrolisthesis of L1 on L2, L2 on L3, and L5 on S1. Marrow: Marrow is of normal overall signal. No acute vertebral body compression fractures. No suspicious marrow enhancement. Posterior fusion hardware at T12-L2. Chronic mild fracture deformity of L1. Mild reactive signal throughout the endplates of the lumbar and lower thoracic spine. Spinal cord: Conus medullaris terminates at the L1-L2 disc space level. Visualized spinal cord demonstrates normal signal, without suspicious enhancement. Paraspinous soft tissues: No paravertebral masses or abnormal enhancement. T12-L1: Moderate disc desiccation. Mild disc height loss. No significant canal, or foraminal stenosis. L1-L2: Mild chronic retropulsion at the inferior L1 level. Severe disc height loss. Mild canal stenosis. Mild bilateral foraminal stenosis. L2-L3: Severe disc height loss and desiccation. Moderate diffuse disc bulge. Mild facet and ligamentum flavum hypertrophy. Mild canal stenosis. Moderate bilateral foraminal stenosis. L3-L4: Moderate disc desiccation. Mild diffuse disc bulge. Mild facet and ligamentum flavum hypertrophy. Mild canal stenosis. Mild bilateral foraminal stenosis. L4-L5: Moderate disc height loss and desiccation. Moderate diffuse disc bulge with superimposed broad-based central and right posterolateral protrusion. Moderate facet and ligamentum flavum hypertrophy. Severe canal stenosis. Moderate bilateral foraminal stenosis. L5-S1: Moderate disc height loss and desiccation. Mild diffuse disc bulge. Mild bilateral facet hypertrophy. Mild canal stenosis. Moderate bilateral foraminal stenosis. IMPRESSION: 1. Postsurgical sequelae. 2. Chronic L1 fracture. 3. Multilevel degenerative disc and facet disease, as well as ligamentum flavum hypertrophy and epidural lipomatosis. 4. Multilevel canal stenoses, worst at L4-L5 where there is severe canal stenosis. 5. Multilevel foraminal stenoses, worst at L2-L3, L4-L5, and L5-S1, where there are moderate foraminal stenosis present. Dictated by: Mouna Maldonado M.D. on 06/19/2021 at 8:11 Approved by: Mouna Maldonado M.D. on 06/19/2021 at 8:16
== END ==
PROVIDERS: PCP Internal Medicine; Referring Provider Orthopaedic Surgery Foot and Ankle Surgery; Visit Provider Orthopaedic Surgery Foot and Ankle Surgery
DX: M54.9 Dorsalgia, unspecified (principal); R20.2 Paresthesia of skin; M84.48XA Pathological fracture, other site, initial encounter for fracture; M51.35 Other intervertebral disc degeneration, thoracolumbar region; M51.36 Other intervertebral disc degeneration, lumbar region; M48.061 Spinal stenosis, lumbar region without neurogenic claudication; M51.37 Other intervertebral disc degeneration, lumbosacral region; M48.07 Spinal stenosis, lumbosacral region; M46.06 Spinal enthesopathy, lumbar region; E88.2 Lipomatosis, not elsewhere classified
CPT/HCPCS: 72158

== ENCOUNTER 2021-06-24 22:46 | Observation (INO) | payer MEDICARE, MEDICAID, SELFPAY ==
[2021-06-24 22:58] VITALS: BP 158/89; PULSE 94; RESP 18; TEMP 39.2; O2SAT 94; BMI 23.2
--- NOTE | 2021-06-24 23:03 | DI.RAD.S_ITS ---
PROCEDURE: XR CHEST 1V INDICATIONS: suspected sepsis TECHNIQUE: One view of the chest was acquired. COMPARISON: None. FINDINGS: Surgical changes and devices: None. Lungs and pleura: Lungs are clear. No pleural effusions or pneumothorax. Mediastinum: Cardiomegaly without vascular congestion. Atherosclerotic vascular calcification noted in the aortic arch. Bones and chest wall: No suspicious bony lesions. Overlying soft tissues appear unremarkable. Lumbar spine instrumentation partially imaged IMPRESSION: No acute cardiopulmonary findings Cardiomegaly and aortic atherosclerosis Approved by: Dima Deshpande M.D. on 06/24/2021 at 22:53
[2021-06-24 23:14] LABS: COVID19 -Nasal RAPID Negative (Negative)
[2021-06-24 23:23] VITALS: PULSE 88; O2SAT 94
[2021-06-24 23:24] VITALS: BP 147/97; PULSE 87; O2SAT 94
[2021-06-24 23:27] LABS: Add Manual Diff / Slide Review NO; Basophils Absolute Auto 100 /uL (0-100); Basophils Percent Auto 0.8 % (0-2); Eosinophils Absolute Auto 100 /uL (0-450); Eosinophils Percent Auto 1.3 % (2-4); Hematocrit 39.6 % (36-46); Hemoglobin 13.5 g/dL (12.0-16.0); Lymphocytes Absolute Auto 900 /uL (1100-4500); Lymphocytes Percent Auto 12.9 % (25-40); Mean Corpuscular HGB Conc 34.1 % (30-36); Mean Corpuscular Hemoglobin 29.6 PG (26-34); Mean Corpuscular Volume 86.9 fL (80-100); Monocytes Absolute Auto 800 /uL (0-900); Monocytes Percent Auto 10.6 % (3-14); Neutrophils Absolute Auto 5300 /uL (1500-7000); Neutrophils Percent Auto 74.4 % (50-75); Platelet Count 137 X10^3/uL (150-400); Red Blood Cell Count 4.56 X10^6/uL (4.0-5.2); Red Cell Distribution Width 13.2 % (11.6-14.8); White Blood Cell Count 7.1 X10^3/uL (4.5-11.0)
--- NOTE | 2021-06-24 23:28 | PC.NURSE ---
PT had UTI last month. Having frequency and burning with urination currently.
[2021-06-24 23:29] LABS: Bilirubin Urine UA NEGATIVE (NEGATIVE); Color Urine UA YELLOW; Glucose Urine UA NEGATIVE (Negative); Ketones Urine UA NEGATIVE (NEGATIVE); Leukocyte Esterase Urine UA 3+ (NEGATIVE); Nitrite Urine UA POSITIVE (Negative); Occult Blood Urine UA TRACE-LYSED (Negative); Protein Urine UA NEGATIVE (Negative); Urobilinogen Urine UA 0.2 E.U./dL (0.2)
[2021-06-24 23:30] VITALS: BP 134/69; PULSE 87; O2SAT 93
[2021-06-24 23:30] LABS: Lactate (Lactic Acid) 1.8 mmol/L (0.7-2.1)
[2021-06-24 23:31] LABS: Alanine Aminotransferase 14 IU/L (<35); Albumin 3.9 g/dL (3.5-5.0); Albumin Globulin Ratio 1.1 (1.0-2.8); Alkaline Phosphatase 57 U/L (38-126); Aspartate Aminotransferase 21 IU/L (14-36); BUN Creatinine Ratio 34.4 (6-22); Bilirubin Total 0.4 mg/dL (0.2-1.3); Blood Urea Nitrogen 21 mg/dL (7-17); Calcium 9.3 mg/dL (8.4-10.2); Carbon Dioxide 29 mmol/L (22-32); Chloride 98 mmol/L (98-107); Estimated Glomerular Filt Rate > 60.0 mL/min (>60); Globulin 3.4 g/dL (1.7-4.1); Glucose 154 mg/dL (80-110); HEMOLYSIS < 15 (0-50); Lipase 213 U/L (23-300); Potassium 3.7 mmol/L (3.4-5.1); Sodium 136 mmol/L (137-145); Total Protein 7.3 g/dL (6.3-8.2)
[2021-06-24 23:34] LABS: Appearance Urine UA Slightly Cloudy
[2021-06-24] MEDS: SODIUM CHLORIDE 0.9% 1,000 ML 1000 ML IV (23:35)
[2021-06-24 23:37] LABS: RBC Urine 5-10/HPF (0-5/HPF)
[2021-06-24 23:38] LABS: Bacteria Urine Many (>30); Culture Indicated Urine Specimen Cultured; Squamous Epithelial Cell Urine 1-5 /HPF (0-5/HPF); WBC Urine 30-100/HPF (0-5/HPF)
--- NOTE | 2021-06-24 23:38 | ED.GENADULT ---
HPI - General Adult General Chief complaint: Fever Stated complaint: UNCONTROLLED SHAKING Time Seen by Provider: 06/24/21 23:21 Source: family Mode of arrival: Wheelchair Limitations: language barrier History of Present Illness HPI narrative: 81-year-old woman with a history of diabetes, hypertension, hyperlipidemia, arthritis, osteoporosis and recurrent urinary tract infections with ESBL as well as recently noted thickening of her endometrial lining comes in with shaking chills for the last 24-48 hours. She complains of increasing weakness but no specific pain. She does have overall myalgias. No headaches, cough, palpitations, diarrhea no hematuria but she is having frequency no dysuria. Her daughters note shaking chills yesterday and again today. Temperature of 101.9 at home and she was given Tylenol prior to arrival. Related Data Previous Rx's Medication Instructions Recorded blood sugar diagnostic (Blood #100 each 03/15/19 Glucose Test) blood-glucose meter (Blood Glucose #1 each 03/15/19 Monitoring) diclofenac sodium 1 % topical gel 2 gram TOP QID #100 gram 05/25/19 hydrochlorothiazide 12.5 mg capsule 12.5 mg PO QDAY #90 cap 05/25/19 metformin 500 mg tablet,extended 500 mg PO QDAY #180 tab 05/25/19 release 24 hr (Glucophage XR) mometasone 0.1 % topical solution 1 applictn TOP DAILY PRN #60 ml 05/25/19 simvastatin 10 mg tablet 10 mg PO HS #90 tab 05/25/19 solifenacin 5 mg tablet (Vesicare) 5 mg PO QDAY #90 tab 05/25/19 aspirin 81 mg tablet,delayed 81 mg PO QDAY #90 tab 06/22/19 release lisinopril 20 mg tablet See Rx Instructions .ROUTE 06/26/20 .COMPLEX #30 tab alendronate 70 mg tablet See Rx Instructions .ROUTE 09/11/20 .COMPLEX #12 tab metoprolol succinate 50 mg 50 mg PO DAILY #30 tab 10/01/20 tablet,extended release 24 hr cefuroxime axetil 500 mg tablet 500 mg PO BID #14 tab 05/07/21 amoxicillin 875 mg-potassium 1 tab PO BID #20 tab 05/10/21 clavulanate 125 mg tablet (Augmentin) Allergies Allergy/AdvReac Type Severity Reaction Status Date / Time No Known Drug Allergies Allergy Verified 06/02/21 13:40 Review of Systems Review of Systems Narrative: Remainder of complete review of systems is otherwise unremarkable except for that included in the HPI. Patient History Medical History Ankle pain Cystitis Diabetes insipidus Foot pain Hypertension Osteoporosis Type 2 diabetes mellitus with complication (05/25/17) Surgical History No history of previous surgery (06/27/17) Family History (Updated 06/25/21 @ 01:55 by Cristine Mead MD) Mother Diabetes mellitus Social History household members: family Smoking Status: Never smoker Smoking Status: Never smoker alcohol intake frequency: holidays/special occasions only Substance Use Type: does not use Exam Narrative Exam Narrative: General: Frail appearing appearing, in no acute distress. Daughter's help with history taking HEENT: Moist mucous membranes, normal sclera with reactive pupils, Neck: supple Respiratory: Lungs are clear to auscultation, no wheezing no rales no rhonchi. Full and symmetrical air movement Cardiac: Regular rate and rhythm no murmurs no bruits Abdomen: Soft, nontender, good bowel tones, no flank pain Skin: Warm to the touch, no diaphoresis,no rashes Neurologic: Globally weak but Grossly neurologically intact with no obvious asymmetries or abnormalities Extremities: No trauma, well perfused, no lower extremity edema Psych: Cooperative, appropriate insight and affect Initial Vital Signs Initial Vital Signs: Vital Signs Temperature 102.6 F H 06/24/21 22:58 Pulse Rate 94 H 06/24/21 22:58 Respiratory Rate 18 06/24/21 22:58 Blood Pressure 158/89 H 06/24/21 22:58 Pulse Oximetry 94 06/24/21 22:58 Course Orders Ordered: ED Orders 06/24/21 22:50 COVID19 -Nasal swab/Pre-Proc Stat 06/24/21 23:03 XR chest 1V Stat EKG-12 Lead Stat 06/24/21 23:05 Complete Blood Count AUTO DIFF Stat Comprehensive Metabolic Panel Stat Lactate (Lactic Acid) Stat Lipase Stat Procalcitonin Stat 06/24/21 23:20 Urinalysis and Microscopic Stat Urine Culture Stat 06/24/21 23:24 Blood Culture Stat 06/25/21 00:45 COVID19 - ADMIT ([facility] swab/PCR) Stat Acetaminophen (Acetaminophen 325 Mg Tablet) 650 mg PO Q6HR PRN PRN Reason: Fever/Mild Pain (1-3) Hydrocodone Bitart/Acetaminophen (Hydrocodone/Acet 5/325 Tablet) 1 tab PO Q4HR PRN PRN Reason: Pain, Moderate (4-6) Al Hydrox/Mg Hydrox/Simethicone (Mag Hydrox/Alum/Simeth 30 Ml Udc) 30 ml PO Q6HR PRN PRN Reason: Dyspepsia Aspirin (Aspirin Ec 81 Mg Tablet) 81 mg PO DAILY [facility] Atorvastatin Calcium (Atorvastatin 20 Mg Tablet) 10 mg PO BEDTIME [facility] Bisacodyl (Bisacodyl 10 Mg Supp) 10 mg MA DAILY PRN PRN Reason: Constipation Calcium Carbonate (Calcium Carbonate 500 Mg Tab) 1,000 mg PO Q4HR PRN PRN Reason: Dyspepsia Docusate Sodium (Docusate 100 Mg Capsule) 100 mg PO BID [facility] Enoxaparin Sodium (Enoxaparin 40 Mg/0.4 Ml Syringe) 40 mg SUBCUT DAILY [facility] Hydrochlorothiazide (Hydrochlorothiazide 25 Mg Tablet) 25 mg PO DAILY [facility] Lactated Ringer's (Lactated Ringers) 1,000 mls @ 100 mls/hr IV CONT [facility] Last Admin: 06/25/21 02:02 Dose: 100 mls/hr Documented by: FUNMI Levofloxacin (Levaquin) 500 mg in 100 mls @ 100 mls/hr IV Q24H [facility] Insulin Human Lispro (Insulin Lispro 100 Unit/Ml 3ml Vial) 0 unit SUBCUT ACHS [facility]; Protocol Lisinopril (Lisinopril 20 Mg Tablet) 20 mg PO DAILY [facility] Metoprolol Succinate (Metoprolol Er 50 Mg Tablet) 50 mg PO DAILY [facility] Naloxone HCl (Naloxone 0.4 Mg/Ml Vial) 0.2 mg IV Q2MIN PRN PRN Reason: Opiate Reversal Ondansetron HCl (Ondansetron 4 Mg/2 Ml Inj) 4 mg IV Q8HR PRN PRN Reason: Nausea And Vomiting Oxybutynin Chloride (Oxybutynin 5 Mg Er Tab) 5 mg PO DAILY [facility] Pantoprazole Sodium (Pantoprazole Dr 20 Mg Tablet) 20 mg PO 0600 PRIETO Discontinued Medications Acetaminophen (Acetaminophen 325 Mg Tablet) 975 mg PO NOW ONE Stop: 06/24/21 23:39 Last Admin: 06/24/21 23:45 Dose: Not Given Documented by: FLORENCE Sodium Chloride (Normal Saline 0.9%) 1,000 mls @ 1,000 mls/hr IV BOLUS ONE Stop: 06/25/21 00:02 Last Infusion: 06/25/21 01:43 Dose: 0 mls/hr Documented by: Admin: 06/24/21 23:35 Dose: 1,000 mls/hr Documented by: FLORENCE Sodium Chloride (Normal Saline 0.9%) 1,000 mls @ 1,000 mls/hr IV BOLUS ONE Stop: 06/25/21 00:37 Last Admin: 06/25/21 04:03 Dose: Not Given Documented by: FUNMI Levofloxacin (Levaquin) 750 mg in 150 mls @ 100 mls/hr IV NOW ONE Stop: 06/25/21 01:07 Last Infusion: 06/25/21 01:43 Dose: 0 mls/hr Documented by: Admin: 06/24/21 23:47 Dose: 100 mls/hr Documented by: DANNY Levofloxacin (Levaquin) 500 mg in 100 mls @ 100 mls/hr IV Q24H PRIETO Vital Signs Vital signs: Vital Signs - 8 hr 06/24/21 22:58 06/24/21 23:23 06/24/21 23:24 Temperature 102.6 F H Pulse Rate 94 H 88 87 Respiratory Rate 18 Blood Pressure 158/89 H 147/97 H Pulse Oximetry 94 94 94 06/24/21 23:30 06/25/21 00:00 06/25/21 00:30 Temperature Pulse Rate 87 83 80 Respiratory Rate Blood Pressure 134/69 129/67 138/63 Pulse Oximetry 93 93 93 Medical Decision Making Medical Records Medical records narrative: Urine Culture Final 05/09/21 Organism 1 Escherichia coli [place] Count <10,000 CFU/ml ESBL? Extended spectrum Beta lactamase (ESBL Positive) 1. Escherichia coli M.I.C. RX --------- --- * Amoxicillin/Clavulanate 4 S * Ampicillin >=32 R * Ampicillin/Sulbactam 4 S * Cefazolin >=64 R * Cefepime R * Ceftriaxone R * Ciprofloxacin 0.5 S * Ertapenem <=0.5 S * Gentamicin <=1 S * Imipenem <=0.25 S * Levofloxacin 1 S * Nitrofurantoin <=16 S * Tobramycin <=1 S * Trimethoprim/Sulfamethoxazole >=320 R * Piperacillin/Tazobactam <=4 S Lab Data Result diagrams: 06/24/21 23:05 06/24/21 23:05 Labs: Lab Results 06/24/21 06/24/21 06/24/21 Range/Units 22:50 23:05 23:05 WBC 7.1 (4.5-11.0) X10^3/uL RBC 4.56 (4.0-5.2) X10^6/uL Hgb 13.5 (12.0-16.0) g/dL Hct 39.6 (36-46) % MCV 86.9 (80-100) fL MCH 29.6 (26-34) PG MCHC 34.1 (30-36) % RDW 13.2 (11.6-14.8) % Plt Count 137 L (150-400) X10^3/uL Neut % (Auto) 74.4 (50-75) % Lymph % (Auto) 12.9 L (25-40) % [place] % (Auto) 10.6 (3-14) % Eos % (Auto) 1.3 L (2-4) % Baso % (Auto) 0.8 (0-2) % Neut # (Auto) 5300 (6178-2942) /uL Lymph # (Auto) 900 L (2333-9731) /uL [place] # (Auto) 800 (0-900) /uL Eos # (Auto) 100 (0-450) /uL Baso # (Auto) 100 (0-100) /uL Sodium 136 L (137-145) mmol/L Potassium 3.7 (3.4-5.1) mmol/L Chloride 98 (98-107) mmol/L Carbon Dioxide 29 (22-32) mmol/L BUN 21 H (7-17) mg/dL Creatinine 0.61 (0.52-1.04) mg/dL Estimated GFR > 60.0 (>60) mL/min BUN/Creatinine Ratio 34.4 H (6-22) Glucose 154 H (80-110) mg/dL Lactate (0.7-2.1) mmol/L Calcium 9.3 (8.4-10.2) mg/dL Total Bilirubin 0.4 (0.2-1.3) mg/dL AST 21 (14-36) IU/L ALT 14 (<35) IU/L Alkaline Phosphatase 57 (38-126) U/L Total Protein 7.3 (6.3-8.2) g/dL Albumin 3.9 (3.5-5.0) g/dL Globulin 3.4 (1.7-4.1) g/dL Albumin/Globulin Ratio 1.1 (1.0-2.8) Lipase 213 (23-300) U/L Procalcitonin 0.16 (<0.5) ng/mL Urine Color Urine Appearance Urine pH (4.5-8.0) Ur Specific [place] (1.000-1.035) Urine Protein (Negative) Urine Glucose (UA) (Negative) g/dL Urine Ketones (NEGATIVE) Urine Occult Blood (Negative) Urine Nitrate (Negative) Urine Bilirubin (NEGATIVE) Urine Urobilinogen (0.2) E.U./dL Ur Leukocyte Esterase (NEGATIVE) Urine RBC (0-5/HPF) Urine WBC (0-5/HPF) Ur Squamous Epith Cells (0-5/HPF) Urine Bacteria (None) Ur Culture Indicated? SARS-CoV-2 (PCR) Negative (Negative) 06/24/21 06/24/21 Range/Units 23:05 23:20 WBC (4.5-11.0) X10^3/uL RBC (4.0-5.2) X10^6/uL Hgb (12.0-16.0) g/dL Hct (36-46) % MCV (80-100) fL MCH (26-34) PG MCHC (30-36) % RDW (11.6-14.8) % Plt Count (150-400) X10^3/uL Neut % (Auto) (50-75) % Lymph % (Auto) (25-40) % [place] % (Auto) (3-14) % Eos % (Auto) (2-4) % Baso % (Auto) (0-2) % Neut # (Auto) (7427-4915) /uL Lymph # (Auto) (9033-3949) /uL [place] # (Auto) (0-900) /uL Eos # (Auto) (0-450) /uL Baso # (Auto) (0-100) /uL Sodium (137-145) mmol/L Potassium (3.4-5.1) mmol/L Chloride (98-107) mmol/L Carbon Dioxide (22-32) mmol/L BUN (7-17) mg/dL Creatinine (0.52-1.04) mg/dL Estimated GFR (>60) mL/min BUN/Creatinine Ratio (6-22) Glucose (80-110) mg/dL Lactate 1.8 (0.7-2.1) mmol/L Calcium (8.4-10.2) mg/dL Total Bilirubin (0.2-1.3) mg/dL AST (14-36) IU/L ALT (<35) IU/L Alkaline Phosphatase (38-126) U/L Total Protein (6.3-8.2) g/dL Albumin (3.5-5.0) g/dL Globulin (1.7-4.1) g/dL Albumin/Globulin Ratio (1.0-2.8) Lipase (23-300) U/L Procalcitonin (<0.5) ng/mL Urine Color Yellow Urine Appearance Slightly cloudy Urine pH 7.0 (4.5-8.0) Ur Specific [place] 1.010 (1.000-1.035) Urine Protein Negative (Negative) Urine Glucose (UA) Negative (Negative) g/dL Urine Ketones Negative (NEGATIVE) Urine Occult Blood Trace-lysed (Negative) Urine Nitrate Positive H (Negative) Urine Bilirubin Negative (NEGATIVE) Urine Urobilinogen 0.2 (0.2) E.U./dL Ur Leukocyte Esterase 3+ H (NEGATIVE) Urine RBC 5-10/hpf H (0-5/HPF) Urine WBC 30-100/hpf H (0-5/HPF) Ur Squamous Epith Cells 1-5 /hpf (0-5/HPF) Urine Bacteria Many (>30) H (None) Ur Culture Indicated? Specimen cultured SARS-CoV-2 (PCR) (Negative) Imaging Data Chest x-ray: Radiologist's Impression: FINDINGS:? ? Surgical changes and devices:? None.? ? Lungs and pleura:? Lungs are clear.? No pleural effusions or pneumothorax.? ? Mediastinum:? Cardiomegaly without vascular congestion. Atherosclerotic vascular calcification noted in the aortic arch. ? Bones and chest wall:? No suspicious bony lesions.? Overlying soft tissues appear unremarkable.? Lumbar spine instrumentation partially imaged ? IMPRESSION:? ? No acute cardiopulmonary findings Cardiomegaly and aortic atherosclerosis ? ? ? Approved by: Dima Deshpande M.D. on 06/24/2021 at 22:53? MDM Narrative Medical decision making narrative: 81-year-old woman with fever, chills urinalysis suggesting urinary tract infection, with no evidence of hypotension started on fluids and levofloxacin. Antibiotic choices based on urine culture from May 07 indicating E coli sensitive to Levaquin with ESBL multidrug resistance. She has been treated at least twice over the last 6 weeks for similar findings. Today with fevers as high as 102.6 and shaking chills, probability of bacteremia is high. She is started on Levaquin, will discuss admission with the hospitalist given her age, recurrent symptoms and concern for bacteremia without overt signs or symptoms of sepsis at this time. Discharge Plan Departure Patient Disposition: Admitted as Observation Clinical Impression: Acute UTI, Rigors, Fever Admit Date/Time: 06/25/21 00:39 Admit Provider: Cristine Mead
[2021-06-24] MEDS: levoFLOXacin 750 MG/150 ML PIGGYBACK 100 MG IV (23:47)
[2021-06-24 23:48] LABS: Procalcitonin 0.16 ng/mL (<0.5)
[2021-06-25] VITALS (7 sets, daily range): BP systolic 112–141; BP diastolic 62–82; PULSE 62–83; RESP 15–16; TEMP 36.5–36.7; O2SAT 93–96; BMI 23.3
--- NOTE | 2021-06-25 01:11 | PC.NURSE ---
Dr. Mead at bedside.
[2021-06-25 01:46] LABS: COVID19 - ADMIT (NP swab/PCR) Negative (Negative)
--- NOTE | 2021-06-25 01:49 | P.HP_ITS ---
History of Present Illness History of Present Illness Date Patient Seen: 06/25/21 Time Patient Seen: 01:49 Chief complaint: UNCONTROLLED SHAKING Narrative: The patient is an 81 y/o female with a history of type 2 diabetes, hypertension, hyperlipidemia, osteoporosis, with a history of recurrent UTI's. She has had 4 episodes this year. Her last UTI was May. She grew ESBL and completed a 5 day course of treatment. She reports intermitant burning with urination since she completed her treatment. She developed shaking chills yesterday. She was brought to the emergency department for further evaluation. She reports weakness but no pain. She was febrile at home today with a temperature of 101.9. She was brought to the ED for further evaluation. Her WBC is 7.1, U/A is nitrate positive, with 3+ leukocyte esterase, 5-10 wbc/hpf, 30- 100 WBC's, Many bacteria Patient is admitted for recurrent urinary tract infection most likely secondary to ESBL. Patient History Medical History Ankle pain Cystitis Diabetes insipidus Foot pain Hypertension Osteoporosis Type 2 diabetes mellitus with complication (05/25/17) Surgical History No history of previous surgery (06/27/17) Family & Social History Family History (Updated 06/25/21 @ 01:55 by Cristine Mead MD) Mother Diabetes mellitus Safety & Behavioral: Feels Safe in Current Yes Environment Tobacco & Substance use: Smoking Status Never smoker alcohol intake frequency holiday/special occasion Substance Use Type does not use Meds Home Medications and Allergies Home Medications Medication Instructions Recorded Confirmed Type blood sugar diagnostic (Blood #100 each 03/15/19 Rx Glucose Test) blood-glucose meter (Blood Glucose #1 each 03/15/19 Rx Monitoring) diclofenac sodium 1 % topical gel 2 gram TOP QID #100 gram 05/25/19 05/25/19 Rx hydrochlorothiazide 12.5 mg capsule 12.5 mg PO QDAY #90 cap 05/25/19 05/25/19 Rx metformin 500 mg tablet,extended 500 mg PO QDAY #180 tab 05/25/19 05/25/19 Rx release 24 hr (Glucophage XR) mometasone 0.1 % topical solution 1 applictn TOP DAILY PRN #60 ml 05/25/19 05/25/19 Rx simvastatin 10 mg tablet 10 mg PO HS #90 tab 05/25/19 05/25/19 Rx solifenacin 5 mg tablet (Vesicare) 5 mg PO QDAY #90 tab 05/25/19 05/25/19 Rx aspirin 81 mg tablet,delayed 81 mg PO QDAY #90 tab 06/22/19 Rx release lisinopril 20 mg tablet See Rx Instructions .ROUTE 06/26/20 Rx .COMPLEX #30 tab alendronate 70 mg tablet See Rx Instructions .ROUTE 09/11/20 Rx .COMPLEX #12 tab metoprolol succinate 50 mg 50 mg PO DAILY #30 tab 10/01/20 Rx tablet,extended release 24 hr cefuroxime axetil 500 mg tablet 500 mg PO BID #14 tab 05/07/21 Rx amoxicillin 875 mg-potassium 1 tab PO BID #20 tab 05/10/21 06/02/21 Rx clavulanate 125 mg tablet (Augmentin) Allergies Allergy/AdvReac Type Severity Reaction Status Date / Time No Known Drug Allergies Allergy Verified 06/02/21 13:40 Review of Systems Review of Systems Narrative: 10 point review of systems is negative except as above Patient does have back pain and recently was evaluated. It was recommended that she have surgery to repair. She has a prominent endometrial strip and has a pending endometrial biopsy once her blood pressure has improved Exam Vital Signs (past 8 hours): - 06/24/21 22:58 06/24/21 23:23 06/24/21 23:24 Temperature 102.6 F H Pulse Rate 94 H 88 87 Respiratory Rate 18 Blood Pressure 158/89 H 147/97 H Pulse Oximetry 94 94 94 06/24/21 23:30 06/25/21 00:00 06/25/21 00:30 Temperature Pulse Rate 87 83 80 Respiratory Rate Blood Pressure 134/69 129/67 138/63 Pulse Oximetry 93 93 93 Oxygen Delivery Method Room Air Narrative Exam Narrative: Pleasant female, non [place]er speaking. Daughters at the bedside and interpret for her Const Other: Pleasant female resting comfortably and in no acute distress HENMT Other: NC/AT, PERRL, EOMI, Oropharyx clear, neck supple without adenopathy or thyromegaly Resp Other: Lungs: clear to auscultation Cardio Other: RRR nl Sl S2 GI Other: Abd: soft/ non tender/ non distended/ no hepatosplenomegaly No CVAT , patient does have chronic back pain Back/Spine/Pelvis Other: mild tenderness to palpation along thoracic and lumbar spine Skin Other: no lesions noted Neuro Other: nonfocal Extrem Other: 2+ edema Psych Other: unable to determine, but appears appropriate with family at the bedside Objective Labs Result Diagrams: 06/24/21 23:05 06/24/21 23:05 Labs: Laboratory Results - last 24 hr 06/24/21 06/24/21 06/24/21 22:50 23:05 23:05 WBC 7.1 RBC 4.56 Hgb 13.5 Hct 39.6 MCV 86.9 MCH 29.6 MCHC 34.1 RDW 13.2 Plt Count 137 L Neut % (Auto) 74.4 Lymph % (Auto) 12.9 L [place] % (Auto) 10.6 Eos % (Auto) 1.3 L Baso % (Auto) 0.8 Neut # (Auto) 5300 Lymph # (Auto) 900 L [place] # (Auto) 800 Eos # (Auto) 100 Baso # (Auto) 100 Sodium 136 L Potassium 3.7 Chloride 98 Carbon Dioxide 29 BUN 21 H Creatinine 0.61 Estimated GFR > 60.0 BUN/Creatinine Ratio 34.4 H Glucose 154 H Lactate Calcium 9.3 Total Bilirubin 0.4 AST 21 ALT 14 Alkaline Phosphatase 57 Total Protein 7.3 Albumin 3.9 Globulin 3.4 Albumin/Globulin Ratio 1.1 Lipase 213 Procalcitonin 0.16 Urine Color Urine Appearance Urine pH Ur Specific [place] Urine Protein Urine Glucose (UA) Urine Ketones Urine Occult Blood Urine Nitrate Urine Bilirubin Urine Urobilinogen Ur Leukocyte Esterase Urine RBC Urine WBC Ur Squamous Epith Cells Urine Bacteria Ur Culture Indicated? SARS-CoV-2 (PCR) Negative 06/24/21 06/24/21 06/25/21 23:05 23:20 00:45 WBC RBC Hgb Hct MCV MCH MCHC RDW Plt Count Neut % (Auto) Lymph % (Auto) [place] % (Auto) Eos % (Auto) Baso % (Auto) Neut # (Auto) Lymph # (Auto) [place] # (Auto) Eos # (Auto) Baso # (Auto) Sodium Potassium Chloride Carbon Dioxide BUN Creatinine Estimated GFR BUN/Creatinine Ratio Glucose Lactate 1.8 Calcium Total Bilirubin AST ALT Alkaline Phosphatase Total Protein Albumin Globulin Albumin/Globulin Ratio Lipase Procalcitonin Urine Color Yellow Urine Appearance Slightly cloudy Urine pH 7.0 Ur Specific [place] 1.010 Urine Protein Negative Urine Glucose (UA) Negative Urine Ketones Negative Urine Occult Blood Trace-lysed Urine Nitrate Positive H Urine Bilirubin Negative Urine Urobilinogen 0.2 Ur Leukocyte Esterase 3+ H Urine RBC 5-10/hpf H Urine WBC 30-100/hpf H Ur Squamous Epith Cells 1-5 /hpf Urine Bacteria Many (>30) H Ur Culture Indicated? Specimen cultured SARS-CoV-2 (PCR) Negative Assessment & Plan Assessment & Plan narrative: 81 y/o female with a history of type 2 diabetes, hypertension, hyperlipidemia, osteoporosis, recurrent UTI's secondary to ESBL admitted for a recurrent urinary tract infection -patient last treated on May 2021, with amoxicillin and cefuroxime prior cultures sensitive to amox but not cefuroxime -U/a markedly positive and patient symptomatic with fever to 102 -Suspect recurrent ESBL -no evidence of severe sepsis -await blood cultures -repeat labs in am -continue Levofloxacin -home once blood cultures negative, and urine cultures sensitivity available -consider outpatient urology evaluation given multiple recurrent UTI's, patient with urgency on vesicare ( will continue) Hypertension -suboptimal control -continue lisinopril/metoprolol/HCTZ -may need to increase metoprolol dose Type 2 Diabetes -previously on metformin -will check hgb A1C -hold metformin for now -sliding scale while hospitalized Osteoporosis -continue alendronate Thrombocytopenia -plts 137, will follow -Lovenox for dvt prophylaxis for now Patient is a full code. Will note that in her record Patients daughters are at the bedside and her surrogate decision makers Patient will be admitted under observation I have utilized all available records to update, review, and validate patients current medications. Time Spent With Patient Critical Care time: I spent a total of [] minutes of critical care time on this patient's care today; this time is exclusive of procedural time.
[2021-06-25] MEDS: LACTATED RINGERS 1,000 ML 100 ML IV (02:02)
--- NOTE | 2021-06-25 03:38 | PC.NURSE ---
Patient arrived from ED via stretcher at 0127. Patient was able to stand and pivot to bed. Patients daughters arrived with the patient to aid in communication and translate admission. Patient is A/O, RA, VSS, and denies any pain. Home medication list cannot be updated at this time but patient's daughter stated that she will bring in patients medication list tomorrow to review. Patient was oriented to room and call light and belongs (clothing) were placed in the closet in the room. Patient resting comfortably in bed with no other complaints at this time.
[2021-06-25] MEDS: PANTOPRAZOLE DR 20 MG TABLET PO (06:53)
--- NOTE | 2021-06-25 09:13 | P.DS_ITS ---
History of Present Illness History of Present Illness Chief complaint: UNCONTROLLED SHAKING Narrative: Per Dr. Mead: The patient is an 81 y/o female with a history of type 2 diabetes, hypertension, hyperlipidemia, osteoporosis, with a history of recurrent UTI's. She has had 4 episodes this year. Her last UTI was May. She grew ESBL and completed a 5 day course of treatment. She reports intermitant burning with urination since she completed her treatment. She developed shaking chills yesterday. She was brought to the emergency department for further evaluation. She reports weakness but no pain. She was febrile at home today with a temperature of 101.9. She was brought to the ED for further evaluation.? Her WBC is 7.1, U/A is nitrate positive, with 3+ leukocyte esterase, 5-10 wbc/hpf, 30- 100 WBC's, Many bacteria? Patient is admitted for recurrent urinary tract infection most likely secondary to ESBL. Discharge Providers Provider Date of admission: 06/25/21 00:39 Discharge Date: 06/25/21 Primary care physician: Danny Baker MD Discharge provider: Diallo Aquino MD Summary Hospital Course Discharge Diagnosis: 1. UTI 2. Type 2 Diabetes 3. Osteoporosis 4. Thrombocytopenia 5. Hypertension Hospital Course: Ms. Parsons came in with fevers, shaking and found to have a positive urinalysis. She has had multiple previous urinary tract infections. She was started on antibiotics and did well. She was able to be discharged on levofloxacin to complete a course of antibiotics. Her urine did grow back citrobacter sensitive to this medication. She is referred to urology for frequent urine infections. Exam Vital Signs (past 8 hours): Oxygen Delivery Method Room Air Oxygen Flow Rate 0 Narrative Exam Narrative: GEN: no acute distress CV: regular rate and rhythm PULM: clear bilaterally ABD: soft, nontender, nondistended Objective Labs Result Diagrams: 06/24/21 23:05 06/24/21 23:05 [facility] Medical History Ankle pain Cystitis Diabetes insipidus Foot pain Hypertension Osteoporosis Type 2 diabetes mellitus with complication (05/25/17) Surgical History No history of previous surgery (06/27/17) Family History (Updated 06/25/21 @ 01:55 by Cristine Mead MD) Mother Diabetes mellitus Social History household members: family Smoking Status: Never smoker Discharge Plan Discharge Plan Patient Disposition: Home Provider Discharge Comment: Ms. Parsons came in to the hospital with chills. She was found to have a urinary tract infection. She improved with antibiotics, and will be sent keturah with antibiotics. She is referred to urology for frequent UTIs. Discharge orders & Medications Prescriptions: New levofloxacin 500 mg tablet 500 mg PO DAILY Qty: 4 RF: 0 Continued hydrochlorothiazide 12.5 mg capsule 12.5 mg PO QDAY Qty: 90 RF: 3 metformin [Glucophage XR] 500 mg tablet extended release 24 hr 500 mg PO QDAY Qty: 180 RF: 1 simvastatin 10 mg tablet 10 mg PO HS Qty: 90 RF: 3 solifenacin [Vesicare] 5 mg tablet 5 mg PO QDAY Qty: 90 RF: 3 aspirin 81 mg tablet,delayed release (DR/EC) 81 mg PO QDAY Qty: 90 RF: 3 lisinopril 20 mg tablet See Rx Instructions .ROUTE .COMPLEX Qty: 30 RF: 0 alendronate 70 mg tablet See Rx Instructions .ROUTE .COMPLEX Qty: 12 RF: 0 metoprolol succinate 25 mg tablet extended release 24 hr 25 mg PO BID RF: 0 No Action (DME) blood-glucose meter [Blood Glucose Monitoring] kit See Dose Instructions .ROUTE .MEDSUPPLY Qty: 1 RF: 0 (DME) Blood Glucose Test strip See Dose Instructions .ROUTE .MEDSUPPLY Qty: 100 RF: 3 Follow up/Referrals: Danny Baker MD [Primary Care Provider] - Sreekanth Del Angel MD [Physician] - (frequent UTIs, urinary frequency) Diet/Activity/Treatments Diet: Regular Visit Report/Discharge Packet Instructions: DI for Urinary Tract Infection (UTI) Discharge Data Primary Care Provider: Danny Baker Attending Provider: Cristine Mead
[2021-06-25] MEDS: hydroCHLOROthiazide 25 MG TABLET PO (09:18)
[2021-06-25] MEDS: ASPIRIN EC 81 MG TABLET PO (09:18)
[2021-06-25] MEDS: ENOXAPARIN 40 MG/0.4 ML SYRINGE SUBCUT (09:18)
[2021-06-25] MEDS: DOCUSATE 100 MG CAPSULE PO (09:18)
[2021-06-25] MEDS: lisinopriL 20 MG TABLET PO (09:18)
[2021-06-25] MEDS: METOPROLOL ER 50 MG TABLET PO (09:18)
[2021-06-25] MEDS: OXYBUTYNIN 5 MG ER TAB PO (09:19)
--- NOTE | 2021-06-25 12:47 | CM.IDA ---
Initial DCP Assessment Note Pt is a 81 yo female, resident of [place], arrives w/family complaining of fever, chills, and general malaise; Patient is admitted for recurrent urinary tract infection, cultures pending, likely home once labs/culture results are in, w/urology f/u recommended. PCP: Danny Baker Payer: JOEY/KAYLEEN Met w/patient and her dtr Musa, introduced role. Patient speaks Farsi only, dtr speaks fluent macedonian and helps in this conversation. Patient lives w/dtr Musa, along with her oldest dtr and her family; dtr states patient will return home upon medical clearance, has three dtrs that live locally and grand children that can assist as needed. Family does all care giving and plan to have patient remain home for terminal press operator care. Patient has an appt w/outpatient PT tomorrow, [facility] . Dtr asks this FIELD RADIO OPERATOR about HH PT? States she is unsure whether patient would benefit more from HH PT vs outpatient PT? Will discuss this w/RN as patient is now discharged and may not require PT order. Family will transport to outpatient appts as needed. Dtr also requests information about the [employer] senior care care application, which this FIELD RADIO OPERATOR will provide upon return to patient's room. JAMIE James Discharge Planning/Care Management CM Discharge Assessment Start: 06/25/21 12:30 Freq: Status: Active Protocol: Document 06/25/21 12:30 MELANIA (Rec: 06/25/21 12:47 MELANIA [id number]) Discharge Planning Assessment Assigned Sort Manager JAMIE Thomas DPOA/Assigned Designee Name Musa Parsons dtr Contact Information [phone] Advance Directives? No History Provided By Family Member Prior Living Arrangements House Household Members family Type of transporation used prior to Relies on Others admit Independent with ADL's Yes Is patient alert and oriented? Yes Comment Dtr states there is always someone at home w/patient, patient has three dtrs that live locally and multiple grand children that can assist as needed. Barriers to Discharge No Comment Home w/family. Will discuss outpatient vs HH therapies w/ RN or PT if there's a PT order Discharge Plan Home Transportation Arrangement Family Referrals Initiated None needed Additional Comment At this time. HH (?) Whiteboard Updated in Patient Room with Yes name and ext. # of Sort Manager
--- NOTE | 2021-06-25 13:43 | PC.NURSE ---
Assisting with discharge of patient to home with her daughter. Daughter states understanding of discharge instructions regarding UTI as well as antibiotic medication. IV dc'd intact, patient escorted out via wheelchair by AGILE SCRUM MASTER. Patient's daughter instructed to follow up with scheduling appointment with urology as well as her PCP.
== END 2021-06-25 13:45 | disposition home or self-care (01) ==
LOC: ED 23:21 → AC 06-25 00:40
PROVIDERS: Admitting Provider Internal Medicine; Emergency Provider Emergency Medicine; Family Provider Internal Medicine; PCP Internal Medicine; Referring Provider Emergency Medicine; Visit Provider Internal Medicine
DX: N39.0 Urinary tract infection, site not specified (principal); B96.20 Unspecified Escherichia coli [E. coli] as the cause of diseases classified elsewhere; R50.9 Fever, unspecified; D69.6 Thrombocytopenia, unspecified; Z87.440 Personal history of urinary (tract) infections; E11.9 Type 2 diabetes mellitus without complications; I10 Essential (primary) hypertension; E78.5 Hyperlipidemia, unspecified; Z79.84 Long term (current) use of oral hypoglycemic drugs; Z20.822 Contact with and (suspected) exposure to COVID-19
CPT/HCPCS: 36415; 71045; 80053; 81001; 82962; 83605; 83690; 84145; 85025; 87040; 87077; 87086; 87186; 87635; 93005; 93010; 96361; 96365; 96366; 99284; C9803; G0378; J1650; J1815; J1956

== ENCOUNTER 2021-06-26 11:09 | Outpatient (RCR) | payer MEDICARE, MEDICAID, SELFPAY ==
[2021-06-25 01:41] VITALS: BMI 23.3
--- NOTE | 2021-06-26 16:40 | PT.OPPOC ---
Physical, Occupational & Speech Therapy At [facility] Current Diagnoses Constipation, unspecified (06/26/21) Pain in right hip (06/26/21) Radiculopathy, lumbosacral region (06/26/21) Muscle weakness (generalized) (06/26/21) Urge incontinence (06/26/21) Pelvic and perineal pain (06/26/21) Abnormal posture (06/26/21) Visit Care Team Role Provider Type Danny Baker MD Attending Provider Non-Staff Family Provider Primary Care Provider Referring Provider Specialty: Internal Medicine Address: [address] [place] [address], [facility] Email: Plan Of Care PT-OP-T Assessment and Plan Start: 06/23/21 14:31 Freq: Status: Active Protocol: Document 06/26/21 11:16 LRN (Rec: 06/26/21 12:31 LRN [id number]) Physical Therapy Assessment Rehab Potential Rehabilitation Potential Excellent Evaluation Complexity Number of Personal Factors/Comorbidities 3 or More Number of Body Systems Impaired 4 or More Clinical Presentation at Evaluation Evolving Impairments Impairments Activity Tolerance,Pain, Posture,ROM,Soft Tissue Mobility,Strength,Transfers Other Impairments Back dysfunction requiring surgical repair. Goals Four Impairment No PF contraction visible externally. Impairment Pt tries to facilitate PF contraction with use of substitute muscles of the TA, and with minimally with hip AD 's and Gluteal muscles. Short Term Goal (STG) Pt will be educated in anterior PF strengthening exercises for HEP (roll for control). STG Duration 07/17/21 Halfway Goal (LTG) Pt will be able to demonstrate a visible PF contraction with assist from substitute muscles. LTG Duration 08/25/21 Three Impairment PF pain rated 7/10. Short Term Goal (STG) Pt will be educated in PF stretches for pain and proper sitting posture. STG Duration 07/03/21 Agriscience Teacher Goal (LTG) Decrease PF pain to tolerable level (rating 3/10). LTG Duration 08/25/21 Two Impairment Increased frequency of urination (every 15 minutes) Short Term Goal (STG) Increase time between voids to no less than every hour. STG Duration 07/24/21 Agriscience Teacher Goal (LTG) Pt will be able to decrease # of urinations per day using the urinary delay technique. LTG Duration 08/25/21 One Impairment Pt lacks self care HEP. Short Term Goal (STG) Pt will be educated in log roll technique for transfers sit<>supine. STG Duration 07/03/21 Halfway Goal (LTG) Pt will be independent in a self intermediate program to decrease constipation, decrease PF pain, improve PF strength and minimize urinary leakage. LTG Duration 08/25/21 Assessment Summary Assessment Pt is an 81 year old female originally from [place] who only speaks Punjabe. Her daughter was present to interpret for the patient. The pt presents with posterior PF pain on external palpation, from her transverse perineum to the posterior anus and left side of anus. She has no tenderness around the vaginal opening. The pt shows no visible PF contraction and shows some use of her substitute muscles (TA, hip AD 's and gluteal muscles). The pt is also experiencing R low back and R LE pain due to a back dysfunction that she is hoping to receive surgical care the first august once her urinary infection has cleared. The pt's low back condition will hinder her progress in getting pain relief of the PF. Additionally, the pt's history of severe constipation is probably contributing to her posterior PF pain and ongoing muscle guarding and pain. I was unable to assess her trunk and hip mobility/strength due to the extra time taken in communicating with the pt, who is not Nicaraguan speaking. Further assessment of her trunk and hip mobility is needed to determine appropriate and the best exercises for the patient to be performing prior to her back surgery. It is expected that the pt will require extended time for rehabilitation due to the complication of not being able to speak or understand Nicaraguan. The pt will benefit from skilled physical therapy to achieve the above stated goals. Physical Therapy Plan Frequency and Duration Frequency of Treatment 1x/Week Plan of Care Start Date 06/26/21 Plan of Care End Date 08/25/21 Therapeutic Interventions Therapeutic Interventions Home Exercise Program,Manual Therapy,Neuromuscular Re- education,Patient/Caregiver Education,Self-Care/Home Management,Soft Tissue Mobilization,Therapeutic Activities,Therapeutic Exercises Modalities Biofeedback,Electric Stimulation,Hot Packs Next Visit Focus/Plan Next Note Type Treatment Note Next Visit Plan Review Bladder Diary for voiding frequency (urinary and bowel) and recommend modifications to daily routine as needed. Teach Urinary Delay Technique Transfer (log roll) & postural training (sit/stand) Posterior PF stretches for PF pain. Anterior PF awareness & strengthening using substitute ms as needed. Roll for control anterior PF strengthening program. Plan of Care Dates Plan of Care Start Date 06/26/21 Plan of Care End Date 08/25/21 Electronically Signed by: Reyna Velazquez, PT 06/29/21 0942 Please Sign and Return: I have reviewed this Plan of Care and certify that the skilled therapy services above are required to meet the patient?s needs. Physician Signature Date Printed Name and Credentials Clinical Instructor Signature Printed Name and Credentials
--- NOTE | 2021-06-26 16:50 | PT.OIE ---
Current Diagnoses Constipation, unspecified (06/26/21) Pain in right hip (06/26/21) Radiculopathy, lumbosacral region (06/26/21) Muscle weakness (generalized) (06/26/21) Urge incontinence (06/26/21) Pelvic and perineal pain (06/26/21) Abnormal posture (06/26/21) Past Medical History (Last Reviewed 06/25/21 @ 01:55 by Cristine Mead MD) Ankle pain Cystitis Diabetes insipidus Foot pain Hypertension No history of previous surgery (06/27/17) Osteoporosis Type 2 diabetes mellitus with complication (05/25/17) Past Surgical History (Last Reviewed 06/24/21 @ 23:53 by Rosalia Johnson MD) No history of previous surgery (06/27/17) Visit Care Team Role Provider Type Danny Baker MD Attending Provider Non-Staff Family Provider Primary Care Provider Referring Provider Specialty: Internal Medicine Address: [address] [place] [address], [facility] Email: Physical Therapy Initial Evaluation PT-OP-A Visit Information Start: 06/23/21 14:31 Freq: Status: Active Protocol: Document 06/26/21 11:16 LRN (Rec: 06/26/21 12:31 LRN [id number]) Out-Patient Physical Therapy Visit Information Visit Information Visit Type Initial Evaluation Visit Start Time 11:15 Visit Stop Time 12:29 Total Visit Minutes 74 Visit Number 1 Evaluation Information Evaluation Date 06/26/21 Precautions Precautions Controlled Diabetes per medication Controlled HBP Rods in lumbar spine - 25 yrs ago Cataract surgery 2018. PT-OP-B Current Condition Start: 06/23/21 14:31 Freq: Status: Active Protocol: Document 06/26/21 11:16 LRN (Rec: 06/26/21 12:31 LRN [id number]) Current Condition History of Current Condition Onset Date Sep 2020 Current Complaints Increased frequency of urination, increased use of depends History of Current Condition Pt attends with DA. Pt primary language is [employer] ( [place]). Per daughter who interpreted: Pt has never had problems with urinary urgency before or after a back surgery 25 yrs ago. Has been on urinary medication (VESIcare) urinary urgency for 6-7 yrs. Currently on 10 mg, and it is not helping (used to help the past 6-7 years). Now has had 3x urine infections. Pt was admitted to [facility] yesterday due to her UTI and was discharged yesterday afternoon after spending one night in hospital on antiobiotics. Has 3 more days to be on antibiotics. No follow up visits expected with her referring physician, but daughter plans on checking with physician after finishing antibiotics. Now has R leg pain and was found to have a nerve being pinched. Pt is planning on having surgery, but is waiting to become infection free before surgery (estimated time is at the beginning of August). Sitting is not a problem. Has more pain with R sidelying, Pain lying on back. Prior Treatments and Tests Medication VESIcare for overactive bladder. Future Testing and Treatments Planned Back surgery planned in August. Developmental History Developmental History Many years (6-7 yrs ago) has had urge incontinence and was placed on medications. Has tried different medications. Has never had to use diapers, but now has to use diapers all the time since Sep 2020. Treatment Goals Patient/Caregiver Goals Pt education in pre & post operative exercises. Prior Functional Status Baseline Function- ADL's Independent Baseline Function- Mobility Independent Baseline Function- Gait Walked until 3 months ago in home 30' without use of AD or assist. Baseline Function- Other Urinated every 45'. Current Functional Impairments (Reported) Functional Limitations- ADL's Urinates every 15'. Independent with toileting, and personal hygiene. Independent with ADLs, only needs assist with walking. Functional Limitations- Mobility/Gait 3 months ago stopped walking due to back and R leg pain ( hip to foot). Not walking for exercise. Currently walking with [facility], [place] Personal Factors Other Personal Factors That May Effect Non-Indonesian speaking (only Therapy/Recovery speaks Punjabe), attended by daughter whose [place] language is also Punjabe, to act as service worker. Back pain limiting mobility. PT-OP-C Subjective Start: 06/23/21 14:31 Freq: Status: Active Protocol: Document 06/26/21 11:16 LRN (Rec: 06/26/21 12:31 LRN [id number]) OP-PT Subjective Patient Comments Patient Comments Pt is non-Indonesian speaking. Daughter was present throughout therapy as service worker. Patient Questionnaires Pelvic Pain and Urgency/Frequency Patient Symptom Scale Pelvic Pain Score 19 PT-OP-I Pelvic Floor Start: 06/23/21 14:31 Freq: Status: Active Protocol: Document 06/26/21 11:16 LRN (Rec: 06/26/21 12:31 LRN [id number]) Pelvic Floor Assessment Urine Pelvic Floor Surgery No Urinary Symptoms Urge Sensation,Pain Other Urinary Symptoms Lessing of urination pain with use of antibiotic. Leakage Cause Cough,Sneeze,Urge Other Leakage Causes Transfer sit to stand. Nocturia 4-5 Pads Used In 24 Hours 4-5 day, 4-5 night. Urine Pad Type Depends Bowel Bowel Symptoms Constipation,Pain Bowel Movement Frequency 1 every 3-4 days. [place] Stool Chart Type 1-7 1 Pelvic Clock Pelvic Clock 3-6 Tenderness Pelvic Clock 6-9 Tenderness Pelvic Clock Other Tender at Perineal node and around anus on L side and posteriorly. Prolapse Prolapse Comments Unable to assess due to pt with currently a UTI. Perineal Descent Resting Absent Bearing Absent Comments Pelvic Floor Comments Deferred assessment due to reported current UTI and patient facial apprehension. PT-OP-J Posture/Palpation/Skin Start: 06/23/21 14:31 Freq: Status: Active Protocol: Document 06/26/21 11:16 LRN (Rec: 06/26/21 12:31 LRN [id number]) Posture Evaluation Position Sitting Head/C-Spine Posture Forward Head T-Spine Posture Increased Kyphosis L-Spine Posture Decreased Lordosis Pelvis Posture Posterior Tilted PT-OP-K Range of Motion Start: 06/23/21 14:31 Freq: Status: Active Protocol: Document 06/26/21 11:16 LRN (Rec: 06/29/21 09:26 LRN [id number]) Lumbar Spine Range of Motion Lumbar Spine Active Degrees Comments Deferred today due to pt guarded behaviour and facial apprehension. Hip Goniometric Range of Motion Hip Right Passive Comments Deferred today due to pt guarded behaviour and facial apprehension. Left Passive Comments Deferred today due to pt guarded behaviour and facial apprehension. PT-OP-M Strength Start: 06/23/21 14:31 Freq: Status: Active Protocol: Document 06/26/21 11:16 LRN (Rec: 06/29/21 09:26 LRN [id number]) Trunk Strength Trunk Manual Muscle Testing Comments Deferred today due to pt guarded behaviour and facial apprehension. Hip Strength Hip Manual Muscle Testing Right Comments Deferred today due to pt guarded behaviour and facial apprehension. Left Comments Deferred today due to pt guarded behaviour and facial apprehension. PT-OP-Q Treatments Start: 06/23/21 14:31 Freq: Status: Active Protocol: Document 06/26/21 11:16 LRN (Rec: 06/26/21 12:31 LRN [id number]) Self-Care/Home Management Treatment Education Other Education Extra time was needed throughout education and discussion with daughter present who was interpreting and clarifying with pt the discussions. The pt was educated in results of evaluation, discussed for appropriate goals and discussed plan of care. Issued & reviewed Bladder diary and explained how the pt was to fill it out. Issued & reviewed at length, handout of Foods and Beverages Bladder Diet, with discussion of foods/drinks to avoid, potentially avoid and those not irritating to the bladder. Issued & reviewed Bowel program in relation to daily fluid requirements per body weight, and fruit & vegetable consumption. Pt to hold on applying other supplements on the handout. Held teaching of bowel massage due to time constraints. PT-OP-T Assessment and Plan Start: 06/23/21 14:31 Freq: Status: Active Protocol: Document 06/26/21 11:16 LRN (Rec: 06/26/21 12:31 LRN [id number]) Physical Therapy Assessment Rehab Potential Rehabilitation Potential Excellent Evaluation Complexity Number of Personal Factors/Comorbidities 3 or More Number of Body Systems Impaired 4 or More Clinical Presentation at Evaluation Evolving Impairments Impairments Activity Tolerance,Pain, Posture,ROM,Soft Tissue Mobility,Strength,Transfers Other Impairments Back dysfunction requiring surgical repair. Goals Four Impairment No PF contraction visible externally. Impairment Pt tries to facilitate PF contraction with use of substitute muscles of the TA, and with minimally with hip AD 's and Gluteal muscles. Short Term Goal (STG) Pt will be educated in anterior PF strengthening exercises for HEP (roll for control). STG Duration 07/17/21 Cook Tortilla Goal (LTG) Pt will be able to demonstrate a visible PF contraction with assist from substitute muscles. LTG Duration 08/25/21 Three Impairment PF pain rated 7/10. Short Term Goal (STG) Pt will be educated in PF stretches for pain and proper sitting posture. STG Duration 07/03/21 Cook Tortilla Goal (LTG) Decrease PF pain to tolerable level (rating 3/10). LTG Duration 08/25/21 Two Impairment Increased frequency of urination (every 15 minutes) Short Term Goal (STG) Increase time between voids to no less than every hour. STG Duration 07/24/21 Chcf Goal (LTG) Pt will be able to decrease # of urinations per day using the urinary delay technique. LTG Duration 08/25/21 One Impairment Pt lacks self care HEP. Short Term Goal (STG) Pt will be educated in log roll technique for transfers sit<>supine. STG Duration 07/03/21 [facility]cf Goal (LTG) Pt will be independent in a self long-term program to decrease constipation, decrease PF pain, improve PF strength and minimize urinary leakage. LTG Duration 08/25/21 Assessment Summary Assessment Pt is an 81 year old female originally from [place] who only speaks Punjabe. Her daughter was present to interpret for the patient. The pt presents with posterior PF pain on external palpation, from her transverse perineum to the posterior anus and left side of anus. She has no tenderness around the vaginal opening. The pt shows no visible PF contraction and shows some use of her substitute muscles (TA, hip AD 's and gluteal muscles). The pt is also experiencing R low back and R LE pain due to a back dysfunction that she is hoping to receive surgical care the first august once her urinary infection has cleared. The pt's low back condition will hinder her progress in getting pain relief of the PF. Additionally, the pt's history of severe constipation is probably contributing to her posterior PF pain and ongoing muscle guarding and pain. I was unable to assess her trunk and hip mobility/strength due to the extra time taken in communicating with the pt, who is not Indonesian speaking. Further assessment of her trunk and hip mobility is needed to determine appropriate and the best exercises for the patient to be performing prior to her back surgery. It is expected that the pt will require extended time for rehabilitation due to the complication of not being able to speak or understand Indonesian. The pt will benefit from skilled physical therapy to achieve the above stated goals. Physical Therapy Plan Frequency and Duration Frequency of Treatment 1x/Week Plan of Care Start Date 06/26/21 Plan of Care End Date 08/25/21 Therapeutic Interventions Therapeutic Interventions Home Exercise Program,Manual Therapy,Neuromuscular Re- education,Patient/Caregiver Education,Self-Care/Home Management,Soft Tissue Mobilization,Therapeutic Activities,Therapeutic Exercises Modalities Biofeedback,Electric Stimulation,Hot Packs Next Visit Focus/Plan Next Note Type Treatment Note Next Visit Plan Review Bladder Diary for voiding frequency (urinary and bowel) and recommend modifications to daily routine as needed. Teach Urinary Delay Technique Transfer (log roll) & postural training (sit/stand) Posterior PF stretches for PF pain. Anterior PF awareness & strengthening using substitute ms as needed. Roll for control anterior PF strengthening program.
--- NOTE | 2021-07-02 14:56 | PT-OP ANOTE ---
cx due to illness - cold
--- NOTE | 2021-07-14 17:03 | PT-OP ANOTE ---
Message received from 07/08/21 that daughter called to cancel remaining appts due to pt is having other health problems and nees to focus on those at this time. Daughter is aware a new referral will be needed in the future.
--- NOTE | 2021-07-14 17:10 | PT.OPDS ---
Current Diagnoses Constipation, unspecified (06/26/21) Pain in right hip (06/26/21) Radiculopathy, lumbosacral region (06/26/21) Muscle weakness (generalized) (06/26/21) Urge incontinence (06/26/21) Pelvic and perineal pain (06/26/21) Abnormal posture (06/26/21) Visit Care Team Role Provider Type Danny Baker MD Attending Provider Non-Staff Family Provider Primary Care Provider Referring Provider Specialty: Internal Medicine Address: [address] [place] [address], [facility] Email: Visit Number Visit Number 1 Discharge Summary PT-OP-B Current Condition Start: 06/23/21 14:31 Freq: Status: Active Protocol: Document 06/26/21 11:16 LRN (Rec: 06/26/21 12:31 LRN [id number]) Current Condition History of Current Condition Onset Date Sep 2020 Current Complaints Increased frequency of urination, increased use of depends History of Current Condition Pt attends with [facility]. Pt primary language is Punjabe ( Nicole). Per daughter who interpreted: Pt has never had problems with urinary urgency before or after a back surgery 25 yrs ago. Has been on urinary medication (VESIcare) urinary urgency for 6-7 yrs. Currently on 10 mg, and it is not helping (used to help the past 6-7 years). Now has had 3x urine infections. Pt was admitted to [facility] yesterday due to her UTI and was discharged yesterday afternoon after spending one night in hospital on antiobiotics. Has 3 more days to be on antibiotics. No follow up visits expected with her referring physician, but daughter plans on checking with physician after finishing antibiotics. Now has R leg pain and was found to have a nerve being pinched. Pt is planning on having surgery, but is waiting to become infection free before surgery (estimated time is at the beginning of August). Sitting is not a problem. Has more pain with R sidelying, Pain lying on back. Prior Treatments and Tests Medication VESIcare for overactive bladder. Future Testing and Treatments Planned Back surgery planned in August. Developmental History Developmental History Many years (6-7 yrs ago) has had urge incontinence and was placed on medications. Has tried different medications. Has never had to use diapers, but now has to use diapers all the time since Sep 2020. Treatment Goals Patient/Caregiver Goals Pt education in pre & post operative exercises. Prior Functional Status Baseline Function- ADL's Independent Baseline Function- Mobility Independent Baseline Function- Gait Walked until 3 months ago in home 30' without use of AD or assist. Baseline Function- Other Urinated every 45'. Current Functional Impairments (Reported) Functional Limitations- ADL's Urinates every 15'. Independent with toileting, and personal hygiene. Independent with ADLs, only needs assist with walking. Functional Limitations- Mobility/Gait 3 months ago stopped walking due to back and R leg pain ( hip to foot). Not walking for exercise. Currently walking with [facility], [place]ta[place] Personal Factors Other Personal Factors That May Effect Non-Turkish speaking (only Therapy/Recovery speaks [id number]), attended by daughter whose [place] language is also Pun[place], to act as mechanical engineer. Back pain limiting mobility. PT-OP-C Subjective Start: 06/23/21 14:31 Freq: Status: Active Protocol: Document 06/26/21 11:16 LRN (Rec: 06/26/21 12:31 LRN [id number]) OP-PT Subjective Patient Comments Patient Comments Pt is non-Turkish speaking. Daughter was present throughout therapy as mechanical engineer. Patient Questionnaires Pelvic Pain and Urgency/Frequency Patient Symptom Scale Pelvic Pain Score 19 PT-OP-I Pelvic Floor Start: 06/23/21 14:31 Freq: Status: Active Protocol: Document 06/26/21 11:16 LRN (Rec: 06/26/21 12:31 LRN [id number]) Pelvic Floor Assessment Urine Pelvic Floor Surgery No Urinary Symptoms Urge Sensation,Pain Other Urinary Symptoms Lessing of urination pain with use of antibiotic. Leakage Cause Cough,Sneeze,Urge Other Leakage Causes Transfer sit to stand. Nocturia 4-5 Pads Used In 24 Hours 4-5 day, 4-5 night. Urine Pad Type Depends Bowel Bowel Symptoms Constipation,Pain Bowel Movement Frequency 1 every 3-4 days. Finney Stool Chart Type 1-7 1 Pelvic Clock Pelvic Clock 3-6 Tenderness Pelvic Clock 6-9 Tenderness Pelvic Clock Other Tender at Perineal node and around anus on L side and posteriorly. Prolapse Prolapse Comments Unable to assess due to pt with currently a UTI. Perineal Descent Resting Absent Bearing Absent Comments Pelvic Floor Comments Deferred assessment due to reported current UTI and patient facial apprehension. PT-OP-J Posture/Palpation/Skin Start: 06/23/21 14:31 Freq: Status: Active Protocol: Document 06/26/21 11:16 LRN (Rec: 06/26/21 12:31 LRN [id number]) Posture Evaluation Position Sitting Head/C-Spine Posture Forward Head T-Spine Posture Increased Kyphosis L-Spine Posture Decreased Lordosis Pelvis Posture Posterior Tilted PT-OP-K Range of Motion Start: 06/23/21 14:31 Freq: Status: Active Protocol: Document 06/26/21 11:16 LRN (Rec: 06/29/21 09:26 LRN [id number]) Lumbar Spine Range of Motion Lumbar Spine Active Degrees Comments Deferred today due to pt guarded behaviour and facial apprehension. Hip Goniometric Range of Motion Hip Right Passive Comments Deferred today due to pt guarded behaviour and facial apprehension. Left Passive Comments Deferred today due to pt guarded behaviour and facial apprehension. PT-OP-M Strength Start: 06/23/21 14:31 Freq: Status: Active Protocol: Document 06/26/21 11:16 LRN (Rec: 06/29/21 09:26 LRN [id number]) Trunk Strength Trunk Manual Muscle Testing Comments Deferred today due to pt guarded behaviour and facial apprehension. Hip Strength Hip Manual Muscle Testing Right Comments Deferred today due to pt guarded behaviour and facial apprehension. Left Comments Deferred today due to pt guarded behaviour and facial apprehension. PT-OP-T Assessment and Plan Start: 06/23/21 14:31 Freq: Status: Active Protocol: Document 07/14/21 17:05 LRN (Rec: 07/14/21 17:09 LRN [id number]) Physical Therapy Assessment Goals Four Impairment No PF contraction visible externally. Impairment Pt tries to facilitate PF contraction with use of substitute muscles of the TA, and with minimally with hip AD 's and Gluteal muscles. Short Term Goal (STG) Pt will be educated in anterior PF strengthening exercises for HEP (roll for control). STG Duration 07/17/21 (07/14/21: NOT MET GOAL, EARLY DISCHARGE) Custodial Goal (LTG) Pt will be able to demonstrate a visible PF contraction with assist from substitute muscles. LTG Duration 08/25/21 (07/14/21: NOT MET GOAL, EARLY DISCHARGE) Three Impairment PF pain rated 7/10. Short Term Goal (STG) Pt will be educated in PF stretches for pain and proper sitting posture. STG Duration 07/03/21 (07/14/21: NOT MET GOAL, EARLY DISCHARGE) Emt I/85 Goal (LTG) Decrease PF pain to tolerable level (rating 3/10). LTG Duration 08/25/21 (07/14/21: NOT MET GOAL, EARLY DISCHARGE) Two Impairment Increased frequency of urination (every 15 minutes) Short Term Goal (STG) Increase time between voids to no less than every hour. STG Duration 07/24/21 (07/14/21: NOT MET GOAL, EARLY DISCHARGE) Emt I/85 Goal (LTG) Pt will be able to decrease # of urinations per day using the urinary delay technique. LTG Duration 08/25/21 (07/14/21: NOT MET GOAL, EARLY DISCHARGE) One Impairment Pt lacks self care HEP. Short Term Goal (STG) Pt will be educated in log roll technique for transfers sit<>supine. STG Duration 07/03/21 (07/14/21: NOT MET GOAL, EARLY DISCHARGE) Custodial Goal (LTG) Pt will be independent in a self prison program to decrease constipation, decrease PF pain, improve PF strength and minimize urinary leakage. LTG Duration 08/25/21 (07/14/21: NOT MET GOAL, EARLY DISCHARGE) Assessment Summary Assessment Pt was seen only for her initial evaluation, and due to other health issued has chosen to discharge from therapy to focus on the other health issues. Pt did not meet goals due to early discharge. Physical Therapy Plan Discharge Physical Therapy Discharge Reasons Patient Request Discharge Comments Pt is aware that in order to return to physical therapy she will need a new referral. Thank you for your referral.
== END 2021-10-06 09:45 ==
LOC: PHYS 11:09
PROVIDERS: Family Provider Internal Medicine; PCP Internal Medicine; Referring Provider Internal Medicine; Visit Provider Internal Medicine
DX: N39.41 Urge incontinence (principal); M62.81 Muscle weakness (generalized); R29.3 Abnormal posture; R10.2 Pelvic and perineal pain; M54.17 Radiculopathy, lumbosacral region; K59.00 Constipation, unspecified; M25.551 Pain in right hip
CPT/HCPCS: 97162; 97535

== ENCOUNTER → 2021-07-08 08:54 | Outpatient (CLI) | payer MEDICARE, MEDICAID, SELFPAY ==
[2021-06-25 01:41] VITALS: BMI 23.3
[2021-07-08 10:11] LABS: BUN Creatinine Ratio 25.8 (6-22); Blood Urea Nitrogen 16 mg/dL (7-17); Calcium 9.4 mg/dL (8.4-10.2); Carbon Dioxide 30 mmol/L (22-32); Chloride 99 mmol/L (98-107); Estimated Glomerular Filt Rate > 60.0 mL/min (>60); Glucose 131 mg/dL (80-110); HEMOLYSIS < 15 (0-50); Potassium 3.8 mmol/L (3.4-5.1); Sodium 137 mmol/L (137-145)
== END ==
PROVIDERS: Family Provider Internal Medicine; PCP Internal Medicine; Referring Provider Urology; Visit Provider Urology
DX: N30.90 Cystitis, unspecified without hematuria (principal); R31.0 Gross hematuria; Z87.898 Personal history of other specified conditions
CPT/HCPCS: 36415; 80048; 81002; 99215

== ENCOUNTER → 2021-07-09 09:38 | Outpatient (CLI) | payer MEDICARE, MEDICAID, SELFPAY ==
[2021-06-25 01:41] VITALS: BMI 23.3
--- NOTE | 2021-07-09 09:46 | DI.CT.S_ITS ---
PROCEDURE: CT ABDOMEN PELVIS WO/W CON INDICATIONS: Recurring urinary tract infection TECHNIQUE: After the administration of oral contrast, 5 mm thick sections acquired from the diaphragms to the iliac crests. After the administration of intravenous contrast, 5 mm thick sections acquired from the diaphragms to the symphysis. 5 mm thick coronal and sagittal reformats were acquired. For radiation dose reduction, the following was used: automated exposure control, adjustment of mA and/or kV according to patient size. COMPARISON: None. FINDINGS: Image quality: Excellent. ABDOMEN: Lung bases: Lung bases are clear. Cardiomegaly without pericardial effusion. Coronary artery calcification. Solid organs: Liver is normal in size and enhancement. No gallbladder wall thickening, pericholecystic fluid, or calcified gallstones. Biliary system is non-dilated. The pancreas enhances normally. The spleen is normal in size and enhancement. No adrenal nodules. Both kidneys are normal in size. Symmetric enhancement without evidence of obstructive uropathy. 5.4 mm hypoattenuating lesion in the right lower pole, which may reflect a cyst. Bowel and peritoneum: Moderate stool burden throughout the colon. No evidence of intestinal obstruction. The appendix appears normal. No free fluid or air. Nodes and vessels: No retroperitoneal or mesenteric adenopathy by size criteria. Aorta and inferior vena are normal in caliber. Miscellaneous: No ventral hernias. PELVIS: Genitourinary: Bladder wall thickness is normal. Miscellaneous: No inguinal hernias or adenopathy. Bones: No suspicious bony lesions. Posterior element fixation hardware T12 to L2. Multifocal degenerative change. IMPRESSION: 1. No significant abnormality. Dictated by: Jatin Drew M.D. on 07/09/2021 at 10:56 Approved by: Jatin Drew M.D. on 07/09/2021 at 11:08
== END ==
PROVIDERS: Family Provider Internal Medicine; PCP Internal Medicine; Referring Provider Urology; Visit Provider Urology
DX: R31.0 Gross hematuria (principal); N39.0 Urinary tract infection, site not specified
CPT/HCPCS: 74178; Q9967

== ENCOUNTER → 2021-07-27 11:13 | Outpatient (CLI) | payer MEDICARE, MEDICAID, SELFPAY ==
[2021-06-25 01:41] VITALS: BMI 23.3
[2021-07-27 14:13] LABS: COVID19 -Nasal RAPID Negative (Negative)
== END ==
PROVIDERS: Family Provider Internal Medicine; PCP Internal Medicine; Referring Provider Nurse Practitioner Family; Visit Provider Nurse Practitioner Family
DX: Z20.822 Contact with and (suspected) exposure to COVID-19 (principal)
CPT/HCPCS: 87635; C9803

== ENCOUNTER 2021-07-29 13:01 | Observation (INO) | payer MEDICARE, MEDICAID, SELFPAY ==
[2021-06-25 01:41] VITALS: BMI 23.3
[2021-07-21 14:30] VITALS: BMI 23.9
[2021-07-29] VITALS (13 sets, daily range): BP systolic 102–158; BP diastolic 47–81; PULSE 62–93; RESP 10–20; TEMP 36.2–37.1; O2SAT 91–97; BMI 23.9
--- NOTE | 2021-07-29 | DI.RAD.S_ITS ---
PROCEDURE: XR LUMBAR SPINE 1V INDICATIONS: L4-5 LAMINECTOMY TECHNIQUE: Single views of the lumbar spine were acquired. COMPARISON: None. FINDINGS: Partially visualized lumbar spinal fixation hardware. Surgical instruments projecting in the posterior paraspinal soft tissues of the level of L4-L5 Dictated by: Lj Whitten M.D. on 07/29/2021 at 16:36 Approved by: Lj Whitten M.D. on 07/29/2021 at 16:37
[2021-07-29] MEDS: LACTATED RINGERS 1,000 ML 42 ML IV (13:45)
--- NOTE | 2021-07-29 14:14 | PM.PREOP ---
Pre-operative Note COVID-19 COVID-19 status: Negative Result date/Date tested (Pos, Neg/Pending): 07/27/21 Interval Note History & Physical reviewed/Exam performed by Physician: Yes Changes to H&P: No
--- NOTE | 2021-07-29 14:22 | SUR.PREOP ---
Daughter verified consent with patient , then spoke / verified consent with him after he spoke with patient. SALES AND MARKETING ASSISTANT Anali notified of consent.
--- NOTE | 2021-07-29 14:29 | SUR.PREOP ---
preoperative note: patient speaks Kayla. Daughter used as interpeter for patient in preop area for patients benefit.
[2021-07-29] MEDS: CEFAZOLIN 1 GM VIAL 2 GM IV (14:54)
[2021-07-29] MEDS: BUPIVACAINE 0.25% (PF) 30 ML, EPINEPHrine 0.3 MG INJ (14:55)
--- NOTE | 2021-07-29 15:01 | SUR.OPER ---
Prone on spine table, head in foam head support, padded chest and pelvic supports, gel pad at knees, lower legs supported by pillows; nipples, genitalia and toes free of pressure, arms secured on foam padded arm boards at <90 degrees abduction. Tape over blanket at thigh secured to table.
--- NOTE | 2021-07-29 16:01 | PM.OP.1 ---
Operative Date/Time/Diagnoses Date of procedure: 07/29/21 Time of procedure: 14:30 Pre-op diagnosis: 1. L4-5 spinal stenosis with neurogenic claudication 2. Neurogenic bladder with possible cauda equina syndrome Post-op diagnosis: same Procedure & Clinicians Procedure: 1. L4-5 laminectomy with bilateral partial facetecomies 2. Utilization of microsurgical technique and operating microscope Same procedure as scheduled: Yes Indications: Patient has been having chronic back pain and worsening lumbar radiculopathy. Patient failed multiple conservative management with worsening pain weakness and numbness in her lower extremity. Patient has been having difficulty performing activity of daily living. After discussing risks benefits of treatment options, patient elected proceed with surgery. Surgeon: Marlin Ramirez Asset Protection Officer: Camacho Campos Click Yes if Unassisted: No Anesthesia Type: General Operative Notes Closure Type: primary Specimen(s): none sent Estimated Blood Loss (mL): 30 Blood products transfused: none Procedure in detail: Patient was seen in the preoperative area. Risks and benefits of the surgery was discussed with the patient. Informed consent was obtained from the patient and placed in the chart. Surgical site was marked. Patient was taken to the operative room. General anesthesia was administered. Prophylactic antibiotic was given to the patient less than 30 min before the incision was made. Patient was placed into a prone position on the Dimitris table. Patient's back was then prepped and draped in the sterile fashion. Time-out was performed at this time. Using AP and lateral C-arm imaging the interval between L4-5 was identified and marked on patient's back. A midline incision was made over the L4-5 interval. The fascia was incised in line with skin incision. Dissection was made down to the level of L4 lamina using bovie and a gomez. Using microsurgical technique and operating microscope, a L4 laminectomy was performed using a Kerrison rongeur, Leksell rongeur and micro pituitary. Liagamentum flavum was resected at the site of the laminotomy. Either side of the dura was exposed. Bilateral partial facetcomies was performed to further decompress the lateral recess. After the laminectomy was completed, the area medial lateral superior and inferior to the area of the laminectomy was inspected and explored using a micro curette. No other impinging structure was identified. The wound was then irrigated with sterile normal saline. The deep fascia was closed with 1-0 Vicryl. The subcutaneous tissue was closed with 2-0 Vicryl. The skin was closed with skin jone. Patient tolerated the procedure well. There were no complications. Patient was transferred recovery room in stable condition. Complications: none Post-operative Condition: stable Disposition: PACU Plan for aftercare: Discharge to home when criteria is met, if not meeting criteria will admit overnight for observation
[2021-07-29] MEDS: ONDANSETRON 4 MG/2 ML INJ IV (16:27)
[2021-07-29] MEDS: OXYCODONE/ACETAMINOPHEN 5/325 TABLET 1 TAB PO (16:54)
--- NOTE | 2021-07-29 17:23 | SUR.PHASEI ---
1612 hrs: Pt arrives PACU breathing unassisted. Report from FEDERICO Briones and Dr Steele. All questions answered.
--- NOTE | 2021-07-29 17:24 | SUR.PHASEI ---
1720 hours: Pt transported to room 215 with RNs. Bedside report to FEDERICO Gallardo.
[2021-07-29] MEDS: SODIUM CHLORIDE 0.9% 1,000 ML 100 ML IV (17:35)
[2021-07-29] MEDS: ACETAMINOPHEN 325 MG TABLET 650 MG PO (23:31)
[2021-07-29] MEDS: ATORVASTATIN 20 MG TABLET 10 MG PO (23:32)
[2021-07-29] MEDS: SENNOSIDES 8.6 MG TABLET 17.2 MG PO (23:32)
[2021-07-29] MEDS: DOCUSATE 100 MG CAPSULE PO (23:33)
[2021-07-29] MEDS: CEFAZOLIN 1 GM VIAL IV (23:33)
[2021-07-29] MEDS: METOPROLOL ER 25 MG TABLET PO (23:40)
[2021-07-30 00:08] VITALS: BP 139/56; PULSE 64; RESP 18; TEMP 36.3; O2SAT 96
[2021-07-30 02:09] VITALS: BP 139/56; PULSE 64
--- NOTE | 2021-07-30 02:30 | PC.NURSE ---
alert, oriented. sarahi speaking, some Estonian understood/spoken. replies thank you. after cares provided. HS requested pain med, PRN tylenol given, this seems to have been effective, as she is sleeping now and appears to be comfortable. continues w/ IVF, + CSM checks, has rattling cough unable to produce sputum at this time. cup of hot chamomile tea w/ honey offered to patient at HS. gesturing to patient this may help her throat / coughing. SCDs in place, neuros intact. dressing to incision is CDI. anticipate d/c home today.
[2021-07-30] MEDS: SODIUM CHLORIDE 0.9% 1,000 ML 100 ML IV (03:44)
[2021-07-30 04:03] VITALS: BP 131/42; PULSE 67; RESP 16; TEMP 36.6; O2SAT 96
[2021-07-30 07:47] VITALS: BP 137/75; PULSE 66; RESP 16; TEMP 36.2; O2SAT 92
[2021-07-30] MEDS: CEFAZOLIN 1 GM VIAL IV (07:52)
[2021-07-30] MEDS: hydroCHLOROthiazide 25 MG TABLET 12.5 MG PO (08:28)
[2021-07-30] MEDS: METOPROLOL ER 25 MG TABLET PO (08:28)
[2021-07-30] MEDS: METFORMIN XR 500 MG TABLET PO (08:29)
[2021-07-30] MEDS: DOCUSATE 100 MG CAPSULE PO (08:29)
[2021-07-30] MEDS: SODIUM CHLORIDE 0.9% FLUSH 10 ML IV (08:29)
[2021-07-30] MEDS: SOLIFENACIN 5 MG TABLET PO (08:36)
--- NOTE | 2021-07-30 12:04 | P.DS_ITS ---
History of Present Illness History of Present Illness Date Patient Seen: 07/30/21 Time Patient Seen: 12:04 Chief complaint: OPB Narrative: Status post L4-[address] Ramirez on 07/29/2021. Doing well. Tolerating p.o. diet. Tylenol for pain control. Ambulated with physical therapy. Cleared for discharge home. Discharge Providers Provider Date of admission: 07/29 Discharge Date: 07/30/21 Primary care physician: Danny Baker MD Consults: 07/29/21 17:14 Consult to Occupational Therapy Evaluate & Treat Comment: Physician Instructions: Evaluate and treat Consult to Physical Therapy Evaluate & Treat Comment: Physician Instructions: Evaluate and Treat Discharge provider: Elana Dumont MD Summary Hospital Course Discharge Diagnosis: ?L4-5 spinal stenosis with neurogenic claudication 2. Neurogenic bladder with possible cauda equina syndrome Hospital Course: Patient was admitted to the floor after surgery for L4-5 laminectomy. She was maintained on IV and p.o. medication. Morning she is tolerating p.o. medication alone. She tolerated oral diet. She ambulated with physical therapy and was found appropriate for discharge home. Status at Discharge Cognitive/behavioral status at discharge: oriented Functional status at discharge: uses cane/walker Overall status at discharge: patient is progressing back to baseline Time Spent with Patient Time spent: Less than 30 minutes Exam Vital Signs (past 8 hours): - 07/30/21 07:47 Temperature 97.2 F L Pulse Rate 66 Respiratory Rate 16 Blood Pressure 137/75 Pulse Oximetry 92 Oxygen Delivery Method Room Air Oxygen Flow Rate 0 Narrative Exam Narrative: Alert and oriented sitting in bed. Kayla speaking. No complaints. Demonstrates dorsiflexion plantar flexion of bilateral lower extremities. Calves soft. 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 Medications on chart. Ambulate. No twisting bending or lifting. Follow-[facility] 2 [facility] Discharge Plan Discharge Plan Patient Disposition: Home Discharge orders & Medications Discharge Orders: Discharge (Order); Ordered 07/30/21 Ordered By: Elana Dumont Prescriptions: New oxycodone 5 mg tablet 5 mg PO Q4H PRN (Reason: pain) Qty: 20 0RF Continued hydrochlorothiazide 12.5 mg capsule 12.5 mg PO QDAY Qty: 90 3RF metformin [Glucophage XR] 500 mg tablet extended release 24 hr 500 mg PO QDAY Qty: 180 1RF simvastatin 10 mg tablet 10 mg PO HS Qty: 90 3RF solifenacin [Vesicare] 5 mg tablet 5 mg PO QDAY Qty: 90 3RF (DME) blood-glucose meter [Blood Glucose Monitoring] kit See Dose Instructions .ROUTE .MEDSUPPLY Qty: 1 0RF Dose Instruction: As directed Rx Instructions: Test blood glucose up to 3 times daily (DME) Blood Glucose Test strip See Dose Instructions .ROUTE .MEDSUPPLY Qty: 100 3RF Dose Instruction: As directed Rx Instructions: Test blood glucose up to three times daily lisinopril 20 mg tablet See Rx Instructions .ROUTE .COMPLEX Qty: 30 0RF Dose Instruction: take 1 tablet by mouth once daily Rx Instructions: take 1 tablet by mouth once daily; MUST BE SEEN FOR REFILLS alendronate 70 mg tablet See Rx Instructions .ROUTE .COMPLEX Qty: 12 0RF Dose Instruction: take 1 tablet by mouth every week Rx Instructions: take 1 tablet by mouth every week: MUST BE SEEN FOR REFILLS metoprolol succinate 25 mg tablet extended release 24 hr 25 mg PO BID 0RF Label Comments: take 1 tablet by mouth twice a day Discontinued aspirin 81 mg tablet,delayed release (DR/EC) 81 mg PO QDAY Qty: 90 3RF Follow up/Referrals: Danny Baker MD [Primary Care Provider] - Diet/Activity/Treatments Diet: Diet as Tolerated and Regular Activity: Limit bending, twisting, lifting Other treatments: Follow-up in 10-14 days in [facility] [phone] Skin/Wound/Dressing Care Report to your healthcare provider any signs of infection, such as:: chills, fever, night sweats, unusual drainage and unusual redness Dressing: Keep dressing clean dry intact May shower with dressing covered and kept dry starting tomorrow Visit Report/Discharge Packet Instructions: DI for Laminectomy Stand Alone Forms: Surgery Discharge Discharge Data Primary Care Provider: Danny Baker Attending Provider: Marlin Ramirez VTE Deep Vein Thrombosis/Pulmonary Embolism Present on Admission: No
--- NOTE | 2021-07-30 12:07 | PT.IIE ---
Current Diagnoses Spinal stenosis, lumbar region with neurogenic claudication (07/29/21) Surgery Performed Operation Date: 07/29/21 14:45 Actual Procedures p L4-5 laminectomy(Not Applicable) - Marlin Ramirez MD Surgical History (Last Reviewed 07/08/21 @ 08:50 by Thomas Tavares MD) Anesthesia Medical History (Last Updated 07/08/21 @ 08:52 by Thomas Tavares MD) Ankle pain (~1996) Cystitis Diabetes insipidus Foot pain (~1996) Gross hematuria Hearing loss History of urinary incontinence (~1994) Hypertension Osteoporosis (~2014) Recurrent urinary tract infection Type 2 diabetes mellitus with complication (05/25/17) Physical Therapy Inpatient Evaluation/Re-Eval M1 PT/OT-IP Prior Functional Status Start: 07/30/21 08:37 Freq: Status: Active Protocol: Document 07/30/21 10:40 MB (Rec: 07/30/21 12:07 MB [id number]) Medical Review Prior Functional Status Medical History Reviewed Yes Diet/Fluid Consistency Regular Communication Pt speaks Kayla and had no communication issues at baseline Mobility and Gait Gait with RW or SPC, used RW to get into the bathtub for bathing Activities of Daily Living and IADL's Gait with RW or SPC, used RW to get into the bathtub for bathing Prior Functional Level (Other details) Pt and her daughter, ADA and grandchildren have been staying at a hotel until their new house in [place] is ready the end of August Social History Household Members family Number of Floors (Floors) One Floor Number of Stairs To Enter/Railing? Elevator in the hotel in which they are residing until their house is ready Home Environment Standard Height Toilet,Tub/ Shower,Elevator Home Equipment Front Wheel Walker,Straight Cane M2 PT-IP Current Condition Start: 07/30/21 08:37 Freq: Status: Active Protocol: Document 07/30/21 10:40 MB (Rec: 07/30/21 12:07 MB [id number]) Physical Therapy Current Condition Current Condition Evaluation Date 07/30/21 Treatment Diagnosis S/p lumbar fusion Onset Date 07/29/2021 M3 PT-IP Subjective Start: 07/30/21 08:37 Freq: Status: Active Protocol: Document 07/30/21 10:40 MB (Rec: 07/30/21 12:07 MB [id number]) Subjective Physical Therapy Visit Type Type Initial Evaluation Visit Start Time 10:40 Visit Stop Time 11:31 Total Visit Minutes 51 Number of ASSEMBLER CLIP ON SUNGLASSES Visits 0 Physical Therapy Visit Comments Patient Comments ADA: to take pt home which is back to hotel Pt: to go back home to hotel with ADA and family today Patient Goals See above Therapy Pain Assessment Pain Present Pain Present Denied Pain M4 PT-IP Mobility and Gait Start: 07/30/21 08:37 Freq: Status: Active Protocol: Document 07/30/21 10:40 MB (Rec: 07/30/21 12:07 MB [id number]) PT-Bed Mobility Assessment Rolling Type of Rolling Log Rolling,Roll to Right Level of Assist Independent Supine to Sit Supine to Sit Independent,Head of Bed Elevated,Bedrails Scooting Scooting to Edge of Bed Independent PT-Transfer Assessment Sit to and From Stand Sit to and from Stand Independent,Standby Assistance ,Use of Upper Extremities Equipment Transfer Assistive Device Gait Belt,Front Wheeled Walker Orthotic/Prosthetic Devices or Brace: No Transfers Transfer Destination Toilet Transfer Technique Gait Transfer Ability Level of Assist Independent Comments Mobility Comments PT ed pt through technical services representative about log rolling before mobilizing as pt initially tries to sit straight up to get OOB and PT must stop her in order to perform log rolling training Gait Assessment Gait Gait Assistance Required: Independent,Standby Assistance ,1 Person Assist Distance (Feet) 150 Able to Maintain Weight Bearing Status Yes During Gait Assistive Devices Assistive Device Gait Belt,Front Wheeled Walker Orthotic/Prosthetic Devices or Brace: No Gait Deviations General Gait Pattern Decreased Stride Length,Flexed Trunk Comments Gait Comments Pt with forward, flexed posture, gait trains 10'x2 from bed to BR toilet and then out into hallway and back to chair in room. Initially, she is SBA and then she is I with RW. Her gait is slow and she is pleasantly conversant with the technical services representative on technical services representative phone and she does tend to not answer PT's questions directly when asked through technical services representative. She does wish to go home today and is ready for her IV to come out and to put on her clothes. She is steady with gait, is able to perform all hygiene with toileting including taking off adult diaper, putting on new one that PT hands her, and cleaning after toileting. PT leaves her up in the chair with ADA nearby after treatment. PT speaks with nsg to communicate that PT does feel that pt is functionally ready to d/c today. PT-Balance Assessment Sitting Balance and Reactions Static Sitting Balance Ability Normal Dynamic Sitting Balance Ability Normal Standing Balance and Reactions Static Standing Balance Ability Good Dynamic Standing Balance Ability Good Device Used RW M5 PT-IP Objective Assessments Start: 07/30/21 08:37 Freq: Status: Active Protocol: Document 07/30/21 10:40 MB (Rec: 07/30/21 12:07 MB [id number]) Orientation Orientation/Cognition Level of Alertness Alert Orientation Name,Place,Situation Language Function Ability No Deficits Noted Safety Awareness Decreased Safety Awareness Memory Description No Deficits Noted Comments Pt is not oriented to year when asked and she looks to ADA and tells PT and technical services representative on phone that she does not speak Maldivian. Likewise, pt does not know the name of hospital and states she does not speak Maldivian. PT con't to ed pt that that is why there is an technical services representative on the phone and PT is assessing her cognition and asks pt to try to answer questions. Initially, decreased understanding of log roll technique and rolling. Gross Range of Motion Upper Extremity ROM Assessment Within Functional Limits Lower Extremity ROM Assessment Within Functional Limits Strength Comments Strength Comments MMT deferred as pt needs to get up to washroom and is moving Muscle Tone Muscle Tone WNL Yes M6 PT-IP Treatment Start: 07/30/21 08:37 Freq: Status: Active Protocol: Document 07/30/21 10:40 MB (Rec: 07/30/21 12:07 MB [id number]) Physical Therapy Treatment Education Education Provided Precautions,Post-Op Packet, Safety Brace Education Patient,Caregiver Other Treatments Other Treatment Performed PT provides post-op folder and ed pt and ADA in back precautions and places handout on the wall. PT ed pt in log rolling and the benefits of OPPT for balance and mobility and that Dr. Ramirez would have to order and that [facility] OPPT does have an technical services representative phone/pad for use for OPPT. M7 PT-IP Assessment and Plan Start: 07/30/21 08:37 Freq: Status: Active Protocol: Document 07/30/21 10:40 MB (Rec: 07/30/21 12:07 MB [id number]) PT Summary Assessment and Plan Potential Rehabilitation Potential Excellent Status of Condition at Evaluation Stable Summary Assessment Summary Pt is a pleasant 81 y/o female presenting with good mobility post-op lumbar fusion. She has a supportive family and is ready to d/c from a functional standpoint. She has needed DME and may benefit from OPPT in the future for balance and strength training. Frequency of Treatment Frequency Of Treatment Discharge Precautions Lumbar Precautions Log Roll,No Twisting,Limit Bending,Lifting Restriction of 10 lbs,Gait Belt above Incisional Area Weight Bearing Status Weight Bearing Status Weight Bear as Tolerated Discharge Recommendations PT Discharge Recommendations Home with Assistance, Outpatient PT Transportation Needs at Discharge Private Vehicle
== END 2021-07-30 12:28 | disposition home or self-care (01) ==
LOC: OR 13:03 → AC 13:04
PROVIDERS: Admitting Provider Orthopaedic Surgery Orthopaedic Surgery of the Spine; Family Provider Internal Medicine; PCP Internal Medicine; Referring Provider Orthopaedic Surgery Orthopaedic Surgery of the Spine; Visit Provider Orthopaedic Surgery Orthopaedic Surgery of the Spine
PROC: (CPT 63047; principal; 2021-07-29 14:45)
DX: M48.062 Spinal stenosis, lumbar region with neurogenic claudication (principal); M54.16 Radiculopathy, lumbar region; Z98.1 Arthrodesis status; N31.9 Neuromuscular dysfunction of bladder, unspecified; E11.9 Type 2 diabetes mellitus without complications; Z79.84 Long term (current) use of oral hypoglycemic drugs; I10 Essential (primary) hypertension
CPT/HCPCS: 63047; 72020; 76000; 82962; 97116; 97161; 97530; G0378; J0171; J0690; J2405; J2704; J3010

== ENCOUNTER → 2022-02-05 09:34 | Outpatient (CLI) | payer MEDICARE, MEDICAID, SELFPAY ==
[2021-07-29 18:12] VITALS: BMI 23.9
[2022-02-05 10:57] LABS: Hematocrit 39.4 % (36-46); Hemoglobin 13.7 g/dL (12.0-16.0); Mean Corpuscular HGB Conc 34.8 % (30-36); Mean Corpuscular Hemoglobin 30.2 PG (26-34); Mean Corpuscular Volume 86.7 fL (80-100); Platelet Count 151 X10^3/uL (150-400); Red Blood Cell Count 4.54 X10^6/uL (4.0-5.2); White Blood Cell Count 3.9 X10^3/uL (4.5-11.0)
[2022-02-05 11:03] LABS: Creatinine Urine Random 75.7 mg/dL
[2022-02-05 11:08] LABS: Microalbumin Urine Random < 0.6 mg/dL (0-1.6)
[2022-02-05 11:10] LABS: Alanine Aminotransferase 13 IU/L (<35); Albumin Globulin Ratio 1.2 (1.0-2.8); Alkaline Phosphatase 49 U/L (38-126); Aspartate Aminotransferase 26 IU/L (14-36); BUN Creatinine Ratio 27.7 (6-22); Bilirubin Total 0.5 mg/dL (0.2-1.3); Blood Urea Nitrogen 18 mg/dL (7-17); Calcium 8.9 mg/dL (8.4-10.2); Carbon Dioxide 32 mmol/L (22-32); Chloride 104 mmol/L (98-107); Cholesterol 187 mg/dL (140-199); Estimated Glomerular Filt Rate > 60 mL/min (>60); Globulin 3.4 g/dL (1.7-4.1); Glucose 104 mg/dL (80-110); HDL Cholesterol 49 mg/dL (40-60); HEMOLYSIS < 15 (0-50); LDL Cholesterol Calculated 103 mg/dL (<100); Potassium 3.9 mmol/L (3.4-5.1); Sodium 141 mmol/L (137-145); Total Protein 7.4 g/dL (6.3-8.2); Triglycerides 173 mg/dL (35-150)
[2022-02-05 12:30] LABS: TSH w/ Reflex to FT4 0.77 uIU/mL (0.47-4.68)
== END ==
PROVIDERS: Family Provider Internal Medicine; PCP Internal Medicine; Referring Provider Internal Medicine; Visit Provider Internal Medicine
DX: E11.8 Type 2 diabetes mellitus with unspecified complications (principal); E78.2 Mixed hyperlipidemia; I10 Essential (primary) hypertension
CPT/HCPCS: 36415; 80053; 80061; 82043; 82570; 83036; 84443; 85027

== ENCOUNTER → 2022-12-19 14:23 | Outpatient (CLI) | payer MEDICARE, MEDICAID, SELFPAY ==
[2021-07-29 18:12] VITALS: BMI 23.9
== END ==
PROVIDERS: Family Provider Internal Medicine; PCP Internal Medicine; Visit Provider Nurse Practitioner Family
DX: J02.9 Acute pharyngitis, unspecified (principal)
CPT/HCPCS: 87070

== ENCOUNTER → 2022-12-30 08:56 | Outpatient (CLI) | payer MEDICARE, MEDICAID, SELFPAY ==
[2021-07-29 18:12] VITALS: BMI 23.9
[2022-12-30 09:49] LABS: Hematocrit 40.9 % (36-46); Mean Corpuscular HGB Conc 34.2 % (30-36); Mean Corpuscular Hemoglobin 29.7 PG (26-34); Platelet Count 166 X10^3/uL (150-400); Red Cell Distribution Width 14.6 % (11.6-14.8); White Blood Cell Count 5.9 X10^3/uL (4.5-11.0)
[2022-12-30 10:10] LABS: Cholesterol 154 mg/dL (140-199); HDL Cholesterol 51 mg/dL (40-60); LDL Cholesterol Calculated 70 mg/dL (<100); Triglycerides 167 mg/dL (35-150)
[2022-12-30 15:15] LABS: Creatinine Urine Random 101.8 mg/dL
[2022-12-30 15:22] LABS: Microalbumin Urine Random < 0.6 mg/dL (0-1.6)
[2022-12-31 09:34] LABS: x Labcorp Estim. Avg Glu (eAG) 134 mg/dL (.); x Labcorp Hemoglobin A1c 6.3 % (4.8-5.6)
== END ==
PROVIDERS: Family Provider Internal Medicine; PCP Internal Medicine; Referring Provider Internal Medicine; Visit Provider Internal Medicine
DX: E11.8 Type 2 diabetes mellitus with unspecified complications (principal); E78.2 Mixed hyperlipidemia; I10 Essential (primary) hypertension; Z87.440 Personal history of urinary (tract) infections
CPT/HCPCS: 36415; 80061; 82043; 82570; 83036; 85027

== ENCOUNTER 2023-02-04 14:30 | Emergency (ER) | payer MEDICARE, MEDICAID, SELFPAY ==
[2021-07-29 18:12] VITALS: BMI 23.9
[2023-02-04 14:42] VITALS: BP 161/81; PULSE 81; RESP 18; TEMP 36.8; O2SAT 94; BMI 24.5
[2023-02-04 16:53] VITALS: BP 167/79; PULSE 70; RESP 18; O2SAT 96
--- NOTE | 2023-02-04 16:56 | PC.NURSE ---
For last 3 days pt has had a CANTOR with left eye pressure. Pt non slovak speaking, family states she sees a black halo around her eye and feels pressure when she is having a CANTOR. Currently no CANTOR and not seeing black halo.
[2023-02-04] MEDS: FLUORESCEIN 1 MG STRIP EYE-LEFT (17:10)
[2023-02-04] MEDS: PROPARACAINE 0.5% OPHTH SOL 1 DROPS EYE-LEFT (17:10)
--- NOTE | 2023-02-04 17:49 | ED.EYEPROB ---
HPI - Eye Problem <Elayne Watkins PA-C - Last Filed: 02/04/23 19:17> General Chief complaint: Eye Problems Stated complaint: swollen left eye/head pain x2 days Time Seen by Provider: 02/04/23 15:55 Source: family Mode of arrival: Ambulatory History of Present Illness HPI Narrative: This is an 82-year-old woman who speaks Kayla with history of type 2 diabetes, hypertension who presents with concern for intermittent left eye pain and blurred vision for the last 2-3 days. Patient states generally when she wakes up in the morning for an hour so and again in the evening before bed for an hour to 3 hours she has been having blurry vision in her left eye and pain behind her left eye she describes it more as a pressure rather than a pain. Her family present with her today note that she has had cataract surgery bilaterally. Patient is interviewed and entire exam is performed with [facility] machine splitter service on ER iPad. Patient states that she has no current pain or blurry vision. Patient denies dizziness, severe or persistent headache, persistent vision change, difficulty walking, neck pain, chest pain, shortness of breath, coordination difficulty, speech change, one-sided weakness or any other symptoms. Related Data Home Medications Medication Instructions Recorded Confirmed aspirin 81 mg tablet,delayed 81 mg PO DAILY 02/05/22 02/04/23 release Previous Rx's Medication Instructions Recorded blood-glucose meter (Blood Glucose #1 ea 03/15/19 Monitoring kit) blood sugar diagnostic (Blood #100 ea 02/05/22 Glucose Test strips) Vesicare 10 mg tablet (solifenacin) 10 mg PO DAILY #90 tabs 12/30/22 alendronate 70 mg tablet See Rx Instructions .Route 12/30/22 .COMPLEX #12 tabs hydrochlorothiazide 12.5 mg capsule 12.5 mg PO QDAY #90 caps 12/30/22 lisinopril 20 mg tablet 20 mg PO DAILY #90 tabs 12/30/22 metformin 500 mg tablet,extended 500 mg PO QDAY #90 tabs 12/30/22 release 24 hr metoprolol succinate 25 mg 25 mg PO BID #180 tabs 12/30/22 tablet,extended release 24 hr simvastatin 20 mg tablet 20 mg PO BEDTIME #90 tabs 12/30/22 omeprazole 40 mg capsule,delayed 40 mg PO DAILY #14 caps 02/04/23 release Allergies Allergy/AdvReac Type Severity Reaction Status Date / Time No Known Drug Allergies Allergy Verified 02/04/23 14:51 Review of Systems <Elayne Watkins PA-C - Last Filed: 02/04/23 19:17> Review of Systems Narrative: See HPI Patient History <Elayne Watkins PA-C - Last Filed: 02/04/23 19:17> Medical History Ankle pain (~1996) Cystitis Diabetes insipidus Eczematous dermatitis Foot pain (~1996) Hearing loss History of recurrent urinary tract infection History of urinary incontinence (~1994) History of urinary retention Hypertension Mixed hyperlipidemia 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 Primary osteoarthritis involving multiple joints Slow transit constipation Tinea unguium Type 2 diabetes mellitus with complication (05/25/17) Venous insufficiency Surgical History Anesthesia History of surgery (~1994) No history of previous surgery (06/27/17) Family History Mother Diabetes mellitus History of heart disease Father History of heart disease Social History household members: family Smoking Status: Never smoker alcohol intake: never Smoking Status: Never smoker alcohol intake frequency: holidays/special occasions only Substance Use Type: does not use Exam <Elayne Watkins PA-C - Last Filed: 02/04/23 19:17> Narrative Exam Narrative: GENERAL: 82 year old patient appears stated age. Well-developed patient, in no distress. HEAD: Atraumatic. Normocephalic. Patient has no tenderness over the temporal or around the affected left eye there is no swelling appreciated and no erythema. EYES: Pupils equal round and reactive. Arcus senilis bilaterally. Extraocular motions intact. No scleral icterus. No injection or drainage. * fluorescein exam: After instilling 1 drop of proparacaine in each eye fluorescein exam of the left eye reveals no evidence of corneal abrasion or uptake * ocular pressure exam: After proparacaine instilled in each eye Elvis-Pen is used to obtain ocular pressures of 16 on the left and 15 on the right * visual acuity 20/70 OS 20/50 OD ENT: Nose without bleeding, purulent drainage. Throat without erythema, tonsillar hypertrophy or exudate. Airway patent. NECK: Trachea midline. Non tender CARDIOVASCULAR: Regular rate and rhythm without murmurs, gallops, or rubs. RESPIRATORY: Clear to auscultation. Breath sounds equal bilaterally. No wheezes, rales, or rhonchi. EXTREMITIES: No edema or joint tenderness. BACK: Nontender without deformity or crepitance. No flank tenderness. NEURO: AOx3. SKIN: See head No rash or erythema of visible areas Initial Vital Signs Initial Vital Signs: Vital Signs Temperature 98.3 F 02/04/23 14:42 Pulse Rate 81 02/04/23 14:42 Respiratory Rate 18 02/04/23 14:42 Blood Pressure 161/81 H 02/04/23 14:42 Pulse Oximetry 94 02/04/23 14:42 Oxygen Delivery Method Room Air 02/04/23 14:42 <Aga Srivastava DO - Last Filed: 02/04/23 19:25> Initial Vital Signs Initial Vital Signs: Vital Signs Temperature 98.3 F 02/04/23 14:42 Pulse Rate 81 02/04/23 14:42 Respiratory Rate 18 02/04/23 14:42 Blood Pressure 161/81 H 02/04/23 14:42 Pulse Oximetry 94 02/04/23 14:42 Oxygen Delivery Method Room Air 02/04/23 14:42 Course <Elayne Watkins PA-C - Last Filed: 02/04/23 19:17> Orders Ordered: Discontinued Medications Fluorescein Sodium (Fluorescein 1 Mg Strip) 1 mg EYE-LEFT NOW ONE Stop: 02/04/23 15:59 Last Admin: 02/04/23 17:10 Dose: 1 mg Documented By: BARRINGTON Proparacaine HCl (Proparacaine 0.5% Ophth Nina) 1 drops EYE-LEFT PRN PRN PRN Reason: eye pain Last Admin: 02/04/23 17:10 Dose: 1 drop Documented By: BARRINGTON Vital Signs Vital signs: Vital Signs - 8 hr 02/04/23 14:42 02/04/23 16:53 Temperature 98.3 F Pulse Rate 81 70 Respiratory Rate 18 18 Blood Pressure 161/81 H 167/79 H Pulse Oximetry 94 96 Oxygen Delivery Method Room Air Room Air <Aga Srivastava DO - Last Filed: 02/04/23 19:25> Orders Ordered: Discontinued Medications Fluorescein Sodium (Fluorescein 1 Mg Strip) 1 mg EYE-LEFT NOW ONE Stop: 02/04/23 15:59 Last Admin: 02/04/23 17:10 Dose: 1 mg Documented By: BARRINGTON Proparacaine HCl (Proparacaine 0.5% Ophth Nina) 1 drops EYE-LEFT PRN PRN PRN Reason: eye pain Last Admin: 02/04/23 17:10 Dose: 1 drop Documented By: BARRINGTON Vital Signs Vital signs: Vital Signs - 8 hr 02/04/23 14:42 02/04/23 16:53 Temperature 98.3 F Pulse Rate 81 70 Respiratory Rate 18 18 Blood Pressure 161/81 H 167/79 H Pulse Oximetry 94 96 Oxygen Delivery Method Room Air Room Air MDM - Eye Problem <Elayne Watkins PA-C - Last Filed: 02/04/23 19:17> Differential Diagnosis Differential diagnosis: Likely corneal abrasion and other (diabetic retinopathy, eye pain, blurred vision) Lab Data Attestation: I reviewed the patient's lab results. Treatment and disposition Shared decision making:: Shared decision-making was used to determine the patient's plan of care for evaluation in the emergency department and plan for outpatient follow-up. [facility] Narrative Medical decision making narrative: Is a well-appearing 82-year-old --Kayla speaking with history of hypertension and type 2 diabetes who presents with her family with concern for intermittent eye pressure and blurred vision in the left eye for the last 3 days occurring mostly in the mornings and evenings and then resolving. History and exam are performed using the ER fixed income portfolio manager service on iPad. Patient is asymptomatic at the time she presents to the ER. Exam including visual acuity, intra-ocular pressures and fluorescein exam are all are unremarkable, she has no erythema or drainage from the eye the eye and surrounding tissues are nontender, I have low suspicion for giant cell arteritis given that she has no tenderness over her rastafari and no persistent pain more suspicious for diabetic retinopathy, she has had previous cataract surgeries bilaterally. Her history is also not concerning for CVA or TIA, she is advised to follow up closely with Ophthalmology for further evaluation, return precautions and ED precautions provided, follow-up plan discussed, all questions answered. Discharge Plan Departure Patient Disposition: Home Clinical Impression: Left eye pain, Blurred vision, left eye Activity Restrictions/Additional Instructions: *You have been diagnosed with [intermittent left eye pain, intermittent left eye blurriness] *What to do: *Please continue to take your regular medications as directed. [ ] New medication prescriptions sent to your pharmacy: [ ] [ ] New medication written as a paper prescription [* ] No new medications given *Please follow up with your primary care provider in 2-3 days, call for an appointment. Let them know you were seen in the Emergency Department and that we ask that you be seen in follow up. We will electronically transmit a record of today's note if your PCP is in our system. We did do an eye exam today including a fluorescein stain to look for any abrasion or injury to her eye surface, we also checked her intra-ocular pressures which were in the normal range, these were about the same on both eyes, we also did a visual acuity exam, you do have worse vision on the left as compared to the right. I suspect that your visual changes he had been experiencing recently are due to your diabetes and strongly encouraged to follow up closely with an real estate account executive/eye doctor for further evaluation. As we discussed if you do experience new or concerning symptoms such as fevers chills severe or persistent headache persistent vision change, difficulty with walking or coordination or any other symptoms of concern do not hesitate to seek re-evaluation. *If you do not have a primary care provider please contact the [facility] Resource line at [phone]. They will ask some questions about your medical history and help get you set up with a doctor in the community. *Return to Emergency Department if you should have any new, worsening or concerning symptoms, such as [fever greater than 101 F, shaking chills, worsening pain, persistent vomiting or other bothersome symptoms] Prescriptions: No Action omeprazole 40 mg capsule,delayed release(DR/EC) 40 mg PO DAILY Qty: 14 0RF (DME) blood-glucose meter [Blood Glucose Monitoring] kit See Dose Instructions .ROUTE .MEDSUPPLY Qty: 1 0RF Dose Instruction: As directed Rx Instructions: Test blood glucose up to 3 times daily solifenacin [Vesicare] 10 mg tablet 10 mg PO DAILY Qty: 90 3RF Rx Instructions: BRAND NAME ONLY aspirin 81 mg tablet,delayed release (DR/EC) 81 mg PO DAILY Patient Comments: take 1 tablet by mouth once daily (DME) Blood Glucose Test Strip See Dose Instructions .ROUTE .MEDSUPPLY Qty: 100 3RF Dose Instruction: As directed Rx Instructions: Test blood glucose once daily metoprolol succinate 25 mg tablet extended release 24 hr 25 mg PO BID Qty: 180 3RF metformin 500 mg tablet extended release 24 hr 500 mg PO QDAY Qty: 90 3RF lisinopril 20 mg tablet 20 mg PO DAILY Qty: 90 3RF hydrochlorothiazide 12.5 mg capsule 12.5 mg PO QDAY Qty: 90 3RF alendronate 70 mg tablet See Rx Instructions .ROUTE .COMPLEX Qty: 12 3RF Dose Instruction: take 1 tablet by mouth every week Rx Instructions: take 1 tablet by mouth every week simvastatin 20 mg tablet 20 mg PO BEDTIME Qty: 90 3RF Referrals: Nico Hawthorne MD [Primary Care Provider] - Stand Alone Forms: Patient Portal/API <Aga Srivastava DO - Last Filed: 02/04/23 19:25> Cosign ED Attending Cosmaryseature Attestation: I was immediately available in the department for consultation. Documentation has been reviewed.
== END 2023-02-04 18:23 | disposition home or self-care (01) ==
PROVIDERS: Emergency Provider Student in an Organized Health Care Education/Training Program; Family Provider Internal Medicine; PCP Internal Medicine
DX: H57.12 Ocular pain, left eye (principal); H53.8 Other visual disturbances
CPT/HCPCS: 99282

== ENCOUNTER → 2023-05-12 18:24 | Outpatient (CLI) | payer MEDICARE, MEDICAID, SELFPAY ==
[2021-07-29 18:12] VITALS: BMI 23.9
== END ==
PROVIDERS: Family Provider Internal Medicine; PCP Internal Medicine; Visit Provider Student in an Organized Health Care Education/Training Program
DX: N39.0 Urinary tract infection, site not specified (principal)
CPT/HCPCS: 87086

== ENCOUNTER → 2023-05-15 | Outpatient (CLI) | payer MEDICARE, MEDICAID, SELFPAY ==
[2021-07-29 18:12] VITALS: BMI 23.9
--- NOTE | 2023-05-15 09:42 | DI.MRI.S_ITS ---
PROCEDURE: MR LUMBAR SPINE WO CON INDICATIONS: LUMBAR STENOSIS TECHNIQUE: Noncontrast sagittal T1 spin echo and T2 fast echo, sagittal STIR, and T2 fast spin echo through the lumbar spine. In cases with scoliosis, additional coronal T2 fast spin echo may be performed. COMPARISON: [facility], MR, MR LUMBAR SPINE WO/W CON, 06/18/2021, 16:58. FINDINGS: Alignment and Curvature: Mild retrolisthesis at L2-3 Bone Marrow: Large decompressive laminectomy at L1 with old healed compression fracture with retropulsed fracture fragment. No central stenosis. Posterolateral fusion supported by debbie and screw instrumentation extending from T12-L2. Moderate bilateral foraminal stenosis L1-2 remains stable. Interbody fusion stable Spinal Cord: Conus medullaris terminates at the L1 level. Visualized cord demonstrates normal signal and size. Paraspinous Soft Tissues: No paravertebral masses. L2-L3: Disc space narrowing with posterior disc osteophyte complex results in moderate6 central stenosis. Moderate right and severe left foraminal stenosis L3-L4: Disc height is preserved. Moderate bilateral foraminal stenosis. L4-L5: Disc space narrowing with posterior disc osteophyte complex and hypertrophic facet joints present. No central stenosis. Severe right and moderate to severe left foraminal stenosis. L5-S1: Disc space narrowing and posterior disc osteophyte complex present with hypertrophic facet joints results in no central stenosis. Moderate bilateral foraminal stenosis. IMPRESSION: Stable MRI of the lumbar spine. Healed L1 compression fracture with height loss, posterior decompression and instrumented fusion Approved by: Dima Deshpande M.D. on 05/20/2023 at 16:55
== END ==
LOC: MRI 09:41
PROVIDERS: Family Provider Internal Medicine; PCP Internal Medicine; Referring Provider Orthopaedic Surgery Orthopaedic Surgery of the Spine; Visit Provider Orthopaedic Surgery Orthopaedic Surgery of the Spine
DX: M48.062 Spinal stenosis, lumbar region with neurogenic claudication (principal); M48.56XS Collapsed vertebra, not elsewhere classified, lumbar region, sequela of fracture; Z98.1 Arthrodesis status
CPT/HCPCS: 72148

== ENCOUNTER → 2023-05-18 11:59 | Outpatient (CLI) | payer MEDICARE, MEDICAID, SELFPAY ==
[2021-07-29 18:12] VITALS: BMI 23.9
[2023-05-18 13:02] LABS: Hemoglobin A1C% w Est Avg Glu 5.8 % (4.0-6.0)
[2023-05-18 13:12] LABS: BUN Creatinine Ratio 34.8 (6-22); Blood Urea Nitrogen 24 mg/dL (7-17); Calcium 9.1 mg/dL (8.4-10.2); Carbon Dioxide 30 mmol/L (22-32); Chloride 97 mmol/L (98-107); Estimated Glomerular Filt Rate > 60 mL/min (>60); Glucose 86 mg/dL (80-110); HEMOLYSIS < 15 (0-50); Potassium 3.9 mmol/L (3.4-5.1); Sodium 136 mmol/L (137-145)
== END ==
PROVIDERS: Family Provider Internal Medicine; PCP Internal Medicine; Referring Provider Internal Medicine; Visit Provider Internal Medicine
DX: E11.8 Type 2 diabetes mellitus with unspecified complications (principal)
CPT/HCPCS: 36415; 80048; 83036

== ENCOUNTER 2023-12-02 12:55 | Emergency (ER) | payer MEDICARE, MEDICAID, SELFPAY ==
[2021-07-29 18:12] VITALS: BMI 23.9
[2023-12-02] VITALS (10 sets, daily range): BP systolic 138–147; BP diastolic 66–104; PULSE 59–70; RESP 16–26; TEMP 36.8–36.9; O2SAT 95–99; BMI 20.4
--- NOTE | 2023-12-02 13:42 | DI.RAD.S_ITS ---
PROCEDURE: XR CHEST 1V INDICATIONS: chest pain TECHNIQUE: One view of the chest was acquired. COMPARISON: [facility], CR, XR CHEST 1V, 06/24/2021, 23:07. FINDINGS: Surgical changes and devices: Thoracolumbar junction fixation devices appear free of disruption. Lungs and pleura: Lungs are clear. No pleural effusions or pneumothorax. Mediastinum: Mediastinal contours appear normal. Heart size is normal. Bones and chest wall: No suspicious bony lesions. Overlying soft tissues appear unremarkable. IMPRESSION: Reduced inspiratory volume, no definite acute disease. Dictated by: Geremias Ashraf M.D. on 12/02/2023 at 14:05 Approved by: Geremias Ashraf M.D. on 12/02/2023 at 14:05
[2023-12-02 13:53] LABS: Add Manual Diff / Slide Review NO; Basophils Absolute Auto 100 /uL (0-100); Basophils Percent Auto 1.3 % (0-2); Eosinophils Absolute Auto 100 /uL (0-450); Eosinophils Percent Auto 1.5 % (2-4); Hematocrit 40.1 % (36-46); Hemoglobin 13.7 g/dL (12.0-16.0); Lymphocytes Absolute Auto 1700 /uL (1100-4500); Lymphocytes Percent Auto 31.1 % (25-40); Mean Corpuscular HGB Conc 34.1 % (30-36); Mean Corpuscular Hemoglobin 30.1 PG (26-34); Mean Corpuscular Volume 88.3 fL (80-100); Monocytes Absolute Auto 400 /uL (0-900); Monocytes Percent Auto 8.2 % (3-14); Neutrophils Absolute Auto 3100 /uL (1500-7000); Neutrophils Percent Auto 57.9 % (50-75); Platelet Count 157 X10^3/uL (150-400); Red Blood Cell Count 4.54 X10^6/uL (4.0-5.2); Red Cell Distribution Width 13.6 % (11.6-14.8); White Blood Cell Count 5.3 X10^3/uL (4.5-11.0)
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
[2023-12-02] MEDS: SODIUM CHLORIDE 0.9% 1,000 ML 150 ML IV (14:05)
[2023-12-02 14:35] LABS: Influenza A - CEPHEID Flu A NEGATIVE (NEGATIVE); Influenza B - CEPHEID Flu B NEGATIVE (NEGATIVE); Respiratory Syncytial Virus Negative (Negative)
[2023-12-02 14:45] LABS: Alanine Aminotransferase 15 IU/L (<35); Albumin 3.9 g/dL (3.5-5.0); Albumin Globulin Ratio 1.1 (1.0-2.8); Alkaline Phosphatase 48 U/L (38-126); Aspartate Aminotransferase 26 IU/L (14-36); BUN Creatinine Ratio 32.8 (6-22); Bilirubin Total 0.6 mg/dL (0.2-1.3); Blood Urea Nitrogen 21 mg/dL (7-17); Calcium 9.5 mg/dL (8.4-10.2); Carbon Dioxide 29 mmol/L (22-32); Chloride 105 mmol/L (98-107); Creatine Kinase 44 U/L (30-135); Estimated Glomerular Filt Rate > 60 mL/min (>60); Globulin 3.4 g/dL (1.7-4.1); Glucose 127 mg/dL (80-110); HEMOLYSIS 19 (0-50); Lipase 229 U/L (23-300); Potassium 3.7 mmol/L (3.4-5.1); Sodium 137 mmol/L (137-145); Total Protein 7.3 g/dL (6.3-8.2)
[2023-12-02 14:49] LABS: COVID-19 CEPHEID 4-PLEX PCR Negative (Negative)
--- NOTE | 2023-12-02 14:49 | ED.WEAKNESS ---
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 Patient has a history of diabetes hypertension, hyperlipidemia urinary incontinence presents today with Gaurang body aches and headache. She states that she just felt weak all over in her body she had a mild headache. No real fever or chills. No abdominal pain nausea or vomiting. No chest pain. And now all of her symptoms have completely resolved. She states that yesterday she was in a normal state of health. Related Data Previous Rx's Medication Instructions Recorded blood-glucose meter (Blood Glucose #1 ea 03/15/19 Monitoring kit) blood sugar diagnostic (Blood #100 ea 02/05/22 Glucose Test strips) Vesicare 10 mg tablet (solifenacin) 10 mg PO DAILY #90 tabs 12/30/22 lisinopril 20 mg tablet 20 mg PO DAILY #90 tabs 12/30/22 simvastatin 20 mg tablet 20 mg PO BEDTIME #90 tabs 12/30/22 aspirin 81 mg tablet,delayed 81 mg PO DAILY #90 tabs 06/20/23 release omeprazole 40 mg capsule,delayed 40 mg PO DAILY #90 caps 11/15/23 release alendronate 70 mg tablet See Rx Instructions .Route 11/16/23 .COMPLEX #12 tabs hydrochlorothiazide 12.5 mg capsule 12.5 mg PO QDAY #90 caps 11/16/23 metformin 500 mg tablet,extended 500 mg PO QDAY #90 tabs 11/16/23 release 24 hr metoprolol succinate 25 mg 25 mg PO BID #180 tabs 11/16/23 tablet,extended release 24 hr cephalexin 500 mg capsule 500 mg PO BID 5 days #10 caps 12/02/23 Allergies Allergy/AdvReac Type Severity Reaction Status Date / Time No Known Drug Allergies Allergy Verified 09/22/23 13:04 Patient History Medical History Slow transit constipation Tinea unguium Eczematous dermatitis 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 History of urinary retention History of recurrent urinary tract infection Venous insufficiency Primary osteoarthritis involving multiple joints Mixed hyperlipidemia Hearing loss History of urinary incontinence (~1994) Cystitis Foot pain (~1996) Hypertension Ankle pain (~1996) Type 2 diabetes mellitus with complication (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/17) Surgical History Anesthesia History of surgery (~1994) No history of previous surgery (06/27/17) Family History Mother Diabetes mellitus History of heart disease Father History of heart disease Social History household members: family Smoking Status: Never smoker alcohol intake: never Smoking Status: Never smoker alcohol intake frequency: other Substance Use Type: does not use Exam Initial Vital Signs Initial Vital Signs: Vital Signs Temperature 98.5 F 12/02/23 13:10 Pulse Rate 64 12/02/23 13:10 Respiratory Rate 16 12/02/23 13:10 Blood Pressure 143/66 H 12/02/23 13:10 Pulse Oximetry 95 12/02/23 13:10 Oxygen Delivery Method Room Air 12/02/23 13:10 GENERAL: Alert pleasant well-appearing 83-year-old female HEENT: Head atraumatic,EOMI, pupils reactive, face symmetric, moist mucous membranes CARDIOVASCULAR: Regular rate and rhythm without murmurs, rubs or gallops. RESPIRATORY: Breath sounds equal bilaterally, no wheezes rales or rhonchi. ABDOMEN: Soft, nontender. Normoactive bowel sounds all 4 quadrants. No guarding or rebound. EXTREMITIES: Normal range of motion, no clubbing or edema. Neurovascularly intact NEUROLOGICAL: Alert and oriented x4.Normal gait and speech. Cranial nerves II through XII grossly intact. Him Director strength equal bilaterally able to lift leg equally SKIN: Warm, dry, no laceration, no petechiae, no rashes or lesions. Course Orders Ordered: ED Orders 12/02/23 13:40 Complete Blood Count AUTO DIFF Stat Comprehensive Metabolic Panel Stat Lipase Stat Troponin & CK Cardiac Panel Stat 12/02/23 13:42 XR chest 1V Stat EKG-12 Lead Stat 12/02/23 13:52 Covid-19 + FLU A/B + RSV - PCR Stat 12/02/23 15:15 Urine Culture Stat Urine Microscopic Stat Discontinued Medications Sodium Chloride (Normal Saline 0.9%) 1,000 mls @ 150 mls/hr IV CONT PRIETO Last Admin: 12/02/23 14:05 Dose: 150 mls/hr Documented By: CTS Vital Signs Vital signs: Vital Signs - 8 hr 12/02/23 13:10 12/02/23 13:22 12/02/23 13:22 Temperature 98.5 F Pulse Rate 64 62 Respiratory Rate 16 Blood Pressure 143/66 H 147/67 H Pulse Oximetry 95 95 Oxygen Delivery Method Room Air Room Air Oxygen Flow Rate 12/02/23 13:30 12/02/23 13:30 12/02/23 14:00 Temperature Pulse Rate 62 Respiratory Rate Blood Pressure 139/76 141/67 H Pulse Oximetry 95 Oxygen Delivery Method Room Air Oxygen Flow Rate 12/02/23 14:00 12/02/23 14:30 12/02/23 14:30 Temperature Pulse Rate 59 L 62 Respiratory Rate 26 H Blood Pressure 138/69 Pulse Oximetry 95 96 Oxygen Delivery Method Room Air Oxygen Flow Rate 12/02/23 15:00 12/02/23 15:00 12/02/23 15:30 Temperature Pulse Rate 64 62 Respiratory Rate 23 Blood Pressure 144/104 H Pulse Oximetry 97 98 Oxygen Delivery Method Oxygen Flow Rate 12/02/23 15:39 12/02/23 15:39 12/02/23 16:00 Temperature Pulse Rate 63 Respiratory Rate Blood Pressure 140/70 142/68 H Pulse Oximetry 97 Oxygen Delivery Method Oxygen Flow Rate 12/02/23 16:00 12/02/23 16:18 Temperature 98.2 F Pulse Rate 61 70 Respiratory Rate 20 16 Blood Pressure 142/68 H Pulse Oximetry 97 99 Oxygen Delivery Method Room Air Oxygen Flow Rate 16 MDM - Weakness Lab Data 12/02/23 13:40 12/02/23 13:40 Labs: Lab Results 12/02/23 12/02/23 12/02/23 Range/Units 13:40 13:52 15:15 WBC 5.3 (4.5-11.0) X10^3/uL RBC 4.54 (4.0-5.2) X10^6/uL Hgb 13.7 (12.0-16.0) g/dL Hct 40.1 (36-46) % MCV 88.3 (80-100) fL MCH 30.1 (26-34) PG MCHC 34.1 (30-36) % RDW 13.6 (11.6-14.8) % Plt Count 157 (150-400) X10^3/uL Neut % (Auto) 57.9 (50-75) % Lymph % (Auto) 31.1 (25-40) % [place] % (Auto) 8.2 (3-14) % Eos % (Auto) 1.5 L (2-4) % Baso % (Auto) 1.3 (0-2) % Neut # (Auto) 3100 (8419-8244) /uL Lymph # (Auto) 1700 (2486-7980) /uL [place] # (Auto) 400 (0-900) /uL Eos # (Auto) 100 (0-450) /uL Baso # (Auto) 100 (0-100) /uL Sodium 137 (137-145) mmol/L Potassium 3.7 (3.4-5.1) mmol/L Chloride 105 (98-107) mmol/L Carbon Dioxide 29 (22-32) mmol/L BUN 21 H (7-17) mg/dL Creatinine 0.64 (0.52-1.04) mg/dL Estimated GFR > 60 (>60) mL/min BUN/Creatinine Ratio 32.8 H (6-22) Glucose 127 H (80-110) mg/dL Calcium 9.5 (8.4-10.2) mg/dL Total Bilirubin 0.6 (0.2-1.3) mg/dL AST 26 (14-36) IU/L ALT 15 (<35) IU/L Alkaline Phosphatase 48 (38-126) U/L Total Creatine Kinase 44 (30-135) U/L Troponin I < 0.012 (0.01-0.034) ng/mL Total Protein 7.3 (6.3-8.2) g/dL Albumin 3.9 (3.5-5.0) g/dL Globulin 3.4 (1.7-4.1) g/dL Albumin/Globulin Ratio 1.1 (1.0-2.8) Lipase 229 (23-300) U/L Urine RBC None seen (0-5/HPF) Urine WBC 5-10/hpf H (0-5/HPF) Ur Squamous Epith Cells None seen (0-5/HPF) Urine Bacteria Many (>30) H (None) Ur Culture Indicated? Specimen cultured Vol Urine Centrifuged 10ml (spun) SARS-CoV-2 (PCR) Negative (Negative) Influenza A (RT-PCR) Flu a negative (NEGATIVE) Influenza B (RT-PCR) Flu b negative (NEGATIVE) RSV (PCR) Negative (Negative) Urine Dip Bedside Urine Glucose Negative Bedside Urine Bilirubin - Negative Bedside Urine Ketone - Negative Urine Specific [place] 1.025 Bedside Urine Occult Blood - Negative Bedside Urine pH 6.0 Bedside Urine Protein - Negative Bedside Urine Urobilinogen - Negative Bedside Urine Nitrite + Positive Bedside Urine Leukocytes - Negative Esterase Imaging Data Chest x-ray: Radiologist Impression: PROCEDURE: XR CHEST 1V INDICATIONS: chest pain TECHNIQUE: One view of the chest was acquired. COMPARISON: [facility], , XR CHEST 1V, 06/24/2021, 23:07. FINDINGS: Surgical changes and devices: Thoracolumbar junction fixation devices appear free of disruption. Lungs and pleura: Lungs are clear. No pleural effusions or pneumothorax. Mediastinum: Mediastinal contours appear normal. Heart size is normal. Bones and chest wall: No suspicious bony lesions. Overlying soft tissues appear unremarkable. IMPRESSION: Reduced inspiratory volume, no definite acute disease. Dictated by: Geremias Ashraf M.D. on 12/02/2023 at 14:05 ECG Data Attestation: I personally reviewed and interpreted this ECG as follows: Interpretation: Sinus rhythm rate 62 VA interval 168 QRS 90 QTC 408 Q-wave noted in lead 3 with T-wave inversions similar to previous EKG no acute ischemia MDM Narrative Medical decision making narrative: Patient 83-year-old female history of diabetes hypertension hyperlipidemia presenting today with generalized weakness which has now resolved. Blood work has been reviewed and overall reassuring, no clinical significant abnormalities, urinalysis is positive for nitrite consistent with UTI, no evidence of DKA, glucose 127, viral panel negative Chest x-ray has been reviewed and negative EKG has been reviewed Patient presents with generalized weakness headache that started today and has now resolved. She overall appears well nontoxic does not meet any sort of sepsis criteria. She is positive for UTI with nitrates. At this time reasonable for outpatient treatment. Discharge Plan Departure Patient Disposition: Home Clinical Impression: Acute UTI Instructions: DI for Urinary Tract Infection (UTI) Activity Restrictions/Additional Instructions: *You have been diagnosed with UTI *What to do: At this time urine is positive for bladder infection *Continue to take medications as directed Keflex 500 mg twice a day for 5 days *Follow up with your primary care provider in 2-3 days or call [phone] *Return to ER if you should have increasing weakness pain headache or any new, worsening or concerning symptoms Prescriptions: New cephalexin 500 mg capsule 500 mg PO BID 5 Days Qty: 10 0RF No Action (DME) blood-glucose meter [Blood Glucose Monitoring] kit See Dose Instructions .ROUTE .MEDSUPPLY Qty: 1 0RF Dose Instruction: As directed Rx Instructions: Test blood glucose up to 3 times daily solifenacin [Vesicare] 10 mg tablet 10 mg PO DAILY Qty: 90 3RF Rx Instructions: BRAND NAME ONLY aspirin 81 mg tablet,delayed release (DR/EC) 81 mg PO DAILY Qty: 90 3RF Patient Comments: take 1 tablet by mouth once daily omeprazole 40 mg capsule,delayed release(DR/EC) 40 mg PO DAILY Qty: 90 3RF alendronate 70 mg tablet See Rx Instructions .ROUTE .COMPLEX Qty: 12 3RF Dose Instruction: take 1 tablet by mouth every week Rx Instructions: take 1 tablet by mouth every week metformin 500 mg tablet extended release 24 hr 500 mg PO QDAY Qty: 90 3RF metoprolol succinate 25 mg tablet extended release 24 hr 25 mg PO BID Qty: 180 3RF hydrochlorothiazide 12.5 mg capsule 12.5 mg PO QDAY Qty: 90 3RF (DME) Blood Glucose Test Strip See Dose Instructions .ROUTE .MEDSUPPLY Qty: 100 3RF Dose Instruction: As directed Rx Instructions: Test blood glucose once daily lisinopril 20 mg tablet 20 mg PO DAILY Qty: 90 3RF simvastatin 20 mg tablet 20 mg PO BEDTIME Qty: 90 3RF Referrals: Nico Hawthorne MD [Primary Care Provider] - Stand Alone Forms: Patient Portal/API
[2023-12-02 14:57] LABS: Troponin I < 0.012 ng/mL (0.01-0.034)
[2023-12-02 16:46] LABS: Bacteria Urine Many (>30); RBC Urine None Seen (0-5/HPF); Squamous Epithelial Cell Urine None Seen (0-5/HPF); Urine Volume 10mL (spun)
[2023-12-02 16:48] LABS: Culture Indicated Urine Specimen Cultured; WBC Urine 5-10/HPF (0-5/HPF)
== END 2023-12-02 16:20 | disposition home or self-care (01) ==
PROVIDERS: Emergency Provider Emergency Medicine; Family Provider Internal Medicine; PCP Internal Medicine
DX: N39.0 Urinary tract infection, site not specified (principal); R07.9 Chest pain, unspecified; R51.9 Headache, unspecified; Z20.822 Contact with and (suspected) exposure to COVID-19
CPT/HCPCS: 0241U; 36415; 71045; 80053; 81003; 81015; 82550; 83690; 84484; 85025; 87077; 87086; 87186; 93005; 96360; 96361; 99284

== ENCOUNTER → 2024-03-12 15:26 | Outpatient (CLI) | payer MEDICARE, MEDICAID, SELFPAY ==
[2021-07-29 18:12] VITALS: BMI 23.9
--- NOTE | 2024-03-12 16:08 | EKG_ITS ---
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
[2024-03-12 17:20] LABS: Bilirubin Urine UA NEGATIVE (NEGATIVE); Color Urine UA YELLOW; Glucose Urine UA NEGATIVE (Negative); Ketones Urine UA NEGATIVE (NEGATIVE); Leukocyte Esterase Urine UA 1+ (NEGATIVE); Nitrite Urine UA POSITIVE (Negative); Occult Blood Urine UA NEGATIVE (Negative); Protein Urine UA NEGATIVE (Negative); Specific Gravity Urine UA 1.015 (1.000-1.035); Urobilinogen Urine UA 0.2 E.U./dL (0.2)
[2024-03-12 17:21] LABS: Appearance Urine UA SL CLOUDY; pH Urine UA 5.5 (4.5-8.0)
[2024-03-12 17:22] LABS: Hematocrit 38.6 % (36-46); Hemoglobin 13.3 g/dL (12.0-16.0); Mean Corpuscular HGB Conc 34.4 % (30-36); Mean Corpuscular Hemoglobin 29.9 PG (26-34); Platelet Count 148 X10^3/uL (150-400); Red Blood Cell Count 4.43 X10^6/uL (4.0-5.2); White Blood Cell Count 5.3 X10^3/uL (4.5-11.0)
[2024-03-12 17:25] LABS: Hemoglobin A1C% w Est Avg Glu 5.8 % (4.0-6.0)
[2024-03-12 17:29] LABS: Bacteria Urine Many (>30); Culture Indicated Urine Specimen Cultured; RBC Urine None Seen (0-5/HPF); Squamous Epithelial Cell Urine 0-1 /HPF (0-5/HPF); Urine Volume 10mL (spun); WBC Urine 10-30/HPF (0-5/HPF)
[2024-03-12 18:04] LABS: Alanine Aminotransferase 14 IU/L (<35); Albumin 4.1 g/dL (3.5-5.0); Albumin Globulin Ratio 1.2 (1.0-2.8); Alkaline Phosphatase 59 U/L (38-126); Amylase 97 U/L (30-110); Aspartate Aminotransferase 27 IU/L (14-36); BUN Creatinine Ratio 29.3 (6-22); Bilirubin Total 0.5 mg/dL (0.2-1.3); Blood Urea Nitrogen 22 mg/dL (7-17); Carbon Dioxide 29 mmol/L (22-32); Chloride 102 mmol/L (98-107); Cholesterol 154 mg/dL (140-199); Estimated Glomerular Filt Rate > 60 mL/min (>60); Globulin 3.4 g/dL (1.7-4.1); Glucose 138 mg/dL (80-110); HDL Cholesterol 50 mg/dL (40-60); HEMOLYSIS < 15 (0-50); LDL Cholesterol Calculated 72 mg/dL (<100); Lipase 260 U/L (23-300); Potassium 3.8 mmol/L (3.4-5.1); Sodium 138 mmol/L (137-145); Total Protein 7.5 g/dL (6.3-8.2); Triglycerides 161 mg/dL (35-150)
[2024-03-12 18:33] LABS: TSH w/ Reflex to FT4 0.55 uIU/mL (0.47-4.68)
[2024-03-12 20:55] LABS: Creatinine Urine Random 59.52 mg/dL
[2024-03-12 20:59] LABS: Microalbumin Urine Random 1.6 mg/dL (0-1.6)
== END ==
LOC: LAB 15:28
PROVIDERS: Family Provider Internal Medicine; PCP Internal Medicine; Referring Provider Internal Medicine; Visit Provider Internal Medicine
DX: Z01.812 Encounter for preprocedural laboratory examination (principal); R55 Syncope and collapse; E11.8 Type 2 diabetes mellitus with unspecified complications; R10.9 Unspecified abdominal pain
CPT/HCPCS: 36415; 80053; 80061; 81001; 82043; 82150; 82570; 83036; 83690; 84443; 85027; 87077; 87086; 93005

== ENCOUNTER → 2024-06-14 10:16 | Outpatient (CLI) | payer MEDICARE, MEDICAID, SELFPAY ==
[2021-07-29 18:12] VITALS: BMI 23.9
[2024-06-14 11:24] LABS: Hematocrit 41.4 % (36-46); Mean Corpuscular HGB Conc 33.9 % (30-36); Mean Corpuscular Hemoglobin 29.3 PG (26-34); Mean Corpuscular Volume 86.4 fL (80-100); Platelet Count 199 X10^3/uL (150-400); Red Cell Distribution Width 13.9 % (11.6-14.8); White Blood Cell Count 5.9 X10^3/uL (4.5-11.0)
[2024-06-14 11:45] LABS: BUN Creatinine Ratio 27.4 (6-22); Blood Urea Nitrogen 20 mg/dL (7-17); Calcium 9.9 mg/dL (8.4-10.2); Carbon Dioxide 30 mmol/L (22-32); Chloride 100 mmol/L (98-107); Estimated Glomerular Filt Rate > 60 mL/min (>60); Glucose 97 mg/dL (80-110); HEMOLYSIS < 15 (0-50); Sodium 138 mmol/L (137-145)
== END ==
PROVIDERS: Family Provider Internal Medicine; PCP Internal Medicine; Referring Provider Internal Medicine; Visit Provider Internal Medicine
DX: E11.8 Type 2 diabetes mellitus with unspecified complications (principal); I10 Essential (primary) hypertension
CPT/HCPCS: 36415; 80048; 83036; 85027

== ENCOUNTER → 2024-06-29 09:03 | Outpatient (CLI) | payer MEDICARE, MEDICAID, SELFPAY ==
[2021-07-29 18:12] VITALS: BMI 23.9
--- NOTE | 2024-06-29 09:04 | DI.NM.S_ITS ---
PROCEDURE: NM JONH PERF SPECT R&S PHARM Rest and pharmacological stress myocardial perfusion SPECT with gated imaging and ejection fraction RADIOPHARMACEUTICAL: 24.2 mCi Tc-99m tetrafosmin IV at rest and 25.1 mCi Tc-99m tetrafosmin IV at peak effect of pharmacological stress. [id number] was performed. INDICATIONS: CHEST PAIN TECHNIQUE: Radiopharmaceutical was injected at peak stress test, and also at rest. SPECT images were obtained. SPECT myocardial perfusion images were displayed in short axis, horizontal long axis, and vertical long axis views. Gated images were reviewed using [employer] software. COMPARISON: None. CARDIAC STRESS: A pharmacologic stress test was performed under the supervision of an attending staff, using an infusion of regadenoson 0.4 mg IV. Hemodynamic data: There is normal blood pressure and heart rate response to pharmacologic stress. Symptoms: The patient denied anginal chest pain. EKG: No diagnostic changes of ischemia; no ectopy. FINDINGS: Raw data: There is good myocardial uptake of radiotracer. No significant motion artifacts. Left ventricle function: Gated images demonstrate normal left ventricular wall thickening. No segmental wall motion abnormalities. No transient ischemic dilation; TID is 1.0 (normal less than 1.3). Left ventricle resting end diastolic volume is 48 mL. Left ventricle stress ejection fraction is >75%; normal range is above 45%. Myocardial perfusion: There is a small size, mild intensity distal septal wall defect that completely resolves in prone imaging. No reversible perfusion defects. IMPRESSION: Low risk study. No evidence of pharmacologic induced ischemia or scar. Small LV size with hyperdynamic function. Dictated by: Raissa Rosales D.O. on 07/02/2024 at 16:57 Approved by: Raissa Rosales D.O. on 07/02/2024 at 16:59
== END ==
PROVIDERS: Family Provider Internal Medicine; PCP Internal Medicine; Referring Provider Internal Medicine Cardiovascular Disease; Visit Provider Internal Medicine Cardiovascular Disease
DX: R07.9 Chest pain, unspecified (principal)
CPT/HCPCS: 78452; 93017; A9502; J2785

== ENCOUNTER → 2024-11-22 09:19 | Outpatient (CLI) | payer MEDICARE, MEDICAID, SELFPAY ==
[2021-07-29 18:12] VITALS: BMI 23.9
[2024-11-22 10:05] LABS: Hematocrit 40.6 % (36-46); Hemoglobin 13.9 g/dL (12.0-16.0); Mean Corpuscular HGB Conc 34.1 % (30-36); Mean Corpuscular Hemoglobin 29.5 PG (26-34); Mean Corpuscular Volume 86.4 fL (80-100); Platelet Count 185 X10^3/uL (150-400); Red Cell Distribution Width 14.5 % (11.6-14.8); White Blood Cell Count 7.4 X10^3/uL (4.5-11.0)
[2024-11-22 10:28] LABS: Hemoglobin A1C% w Est Avg Glu 5.8 % (4.0-6.0)
[2024-11-22 10:36] LABS: Alanine Aminotransferase 16 IU/L (<35); Albumin 3.6 g/dL (3.5-5.0); Albumin Globulin Ratio 1.2 (1.0-2.8); Alkaline Phosphatase 59 U/L (38-126); Aspartate Aminotransferase 26 IU/L (14-36); BUN Creatinine Ratio 21.1 (6-22); Bilirubin Total 0.6 mg/dL (0.2-1.3); Blood Urea Nitrogen 12 mg/dL (7-17); Calcium 9.2 mg/dL (8.4-10.2); Carbon Dioxide 31 mmol/L (22-32); Chloride 103 mmol/L (98-107); Estimated Glomerular Filt Rate > 60 mL/min (>60); Globulin 3.1 g/dL (1.7-4.1); Glucose 110 mg/dL (80-110); HEMOLYSIS < 15 (0-50); Potassium 3.5 mmol/L (3.4-5.1); Sodium 139 mmol/L (137-145); Total Protein 6.7 g/dL (6.3-8.2)
[2024-11-22 11:07] LABS: TSH w/ Reflex to FT4 1.21 uIU/mL (0.47-4.68)
== END ==
PROVIDERS: Family Provider Internal Medicine; PCP Internal Medicine; Referring Provider Internal Medicine; Visit Provider Internal Medicine
DX: E11.8 Type 2 diabetes mellitus with unspecified complications (principal); S06.5XAA Traumatic subdural hemorrhage with loss of consciousness status unknown, initial encounter; I10 Essential (primary) hypertension
CPT/HCPCS: 36415; 80053; 83036; 84443; 85027

== ENCOUNTER → 2025-06-25 10:27 | Outpatient (CLI) | payer MEDICARE, MEDICAID, SELFPAY ==
[2021-07-29 18:12] VITALS: BMI 23.9
[2025-06-25 11:06] LABS: Hemoglobin A1C% w Est Avg Glu 6.4 % (4.0-6.0)
[2025-06-25 12:19] LABS: Blood Urea Nitrogen 13 mg/dL (7-17); Calcium 9.0 mg/dL (8.4-10.2); Carbon Dioxide 28 mmol/L (22-32); Chloride 99 mmol/L (98-107); Cholesterol 181 mg/dL (140-199); Estimated Glomerular Filt Rate > 60 mL/min (>60); Glucose 116 mg/dL (70-99); HDL Cholesterol 56 mg/dL (40-60); HEMOLYSIS 18 (0-50); Potassium 3.8 mmol/L (3.4-5.1); Sodium 135 mmol/L (137-145); Triglycerides 183 mg/dL (35-150)
== END ==
PROVIDERS: Family Provider Internal Medicine; PCP Internal Medicine; Referring Provider Internal Medicine; Visit Provider Internal Medicine
DX: E11.8 Type 2 diabetes mellitus with unspecified complications (principal); I10 Essential (primary) hypertension; E78.2 Mixed hyperlipidemia
CPT/HCPCS: 36415; 80048; 80061; 83036; 84450

== ENCOUNTER → 2025-09-03 15:57 | Outpatient (CLI) | payer MEDICARE, MEDICAID, SELFPAY ==
[2021-07-29 18:12] VITALS: BMI 23.9
[2025-09-03 17:07] LABS: Hematocrit 39.7 % (36-46); Hemoglobin 13.3 g/dL (12.0-16.0); Mean Corpuscular HGB Conc 33.6 % (30-36); Mean Corpuscular Hemoglobin 28.7 PG (26-34); Mean Corpuscular Volume 85.3 fL (80-100); Platelet Count 176 X10^3/uL (150-400)
[2025-09-03 17:40] LABS: Alanine Aminotransferase 13 IU/L (<35); Albumin 4.1 g/dL (3.5-5.0); Albumin Globulin Ratio 1.2 (1.0-2.8); Alkaline Phosphatase 59 U/L (38-126); Blood Urea Nitrogen 22 mg/dL (7-17); Calcium 9.9 mg/dL (8.4-10.2); Carbon Dioxide 29 mmol/L (22-32); Chloride 100 mmol/L (98-107); Estimated Glomerular Filt Rate > 60 mL/min (>60); Globulin 3.3 g/dL (1.7-4.1); Glucose 91 mg/dL (70-99); HEMOLYSIS < 15 (0-50); Potassium 4.1 mmol/L (3.4-5.1); Sodium 138 mmol/L (137-145); Total Protein 7.4 g/dL (6.3-8.2)
[2025-09-03 18:08] LABS: TSH w/ Reflex to FT4 0.67 uIU/mL (0.47-4.68)
[2025-09-03 20:59] LABS: Vitamin B12 Reflex MMA if <400 226 pg/mL (239-931)
== END ==
PROVIDERS: Family Provider Internal Medicine; PCP Internal Medicine; Referring Provider Internal Medicine; Visit Provider Internal Medicine
DX: E53.8 Deficiency of other specified B group vitamins (principal); E11.8 Type 2 diabetes mellitus with unspecified complications
CPT/HCPCS: 36415; 80053; 82607; 83921; 84443; 85027